=== PATIENT | male | born 1955 | race Caucasian/White ===

== ENCOUNTER 2020-10-08 09:19 | Inpatient (IN) | payer MEDICAID ==
[~2020-10-08] VITALS: Ht 172.7 cm; Wt 50.5 kg
[2020-10-08] MEDS ORDERED: DEXAMETHASONE 10 MG/ML VIAL IV ONE (10:00)
[2020-10-08 10:14] LABS: HEMATOCRIT. 32.2 % (42.0-52.0); HEMOGLOBIN. 10.6 g/dL (14.0-18.0); MEAN CORPUSCULAR HEMOGLOBIN 28.5 pg (28.0-32.0); MEAN CORPUSCULAR VOLUME 86.2 fL (80.0-94.0); MEAN PLATELET VOLUME 8.5 fl (7.4-10.4); PLATELET 148 x1000/uL (130-400); RED BLOOD CELL COUNT 3.73 mill/uL (4.7-6.1); RED CELL DISTRIBUTION WIDTH 14.7 % (11.6-14.6)
[2020-10-08 10:26] LABS: CHLORIDE 105 mEq/L (98-107)
[2020-10-08 10:35] LABS: D-DIMER 1.53 mg/L FEU (<0.50); INR 1.3; PROTHROMBIN TIME 13.8 sec (9.6-11.0)
[2020-10-08 10:52] LABS: PLATELET ESTIMATE NORMAL
[2020-10-08] MEDS ORDERED: CALCIUM GLUCONATE 100MG/ML 10ML VIAL IV ONE (12:15)
[2020-10-08] MEDS ORDERED: SODIUM POLYSTYRENE SULFONATE 15 G/60 ML BOT PO ONE (12:15)
[2020-10-08] MEDS ORDERED: SODIUM BICARBONATE 8.4% 1 MEQ/ML 50ML SYR IV ONE (12:30)
[2020-10-08] MEDS ORDERED: EPINEPHRINE 0.1MG/ML (1:10,000) 10ML SYR ONE (12:30)
[2020-10-08] MEDS ORDERED: SODIUM POLYSTYRENE SULFONATE 15 G/60 ML BOT PO SCH (12:45)
[2020-10-08] MEDS ORDERED: INSULIN REGULAR (HUMULIN R) 300UNITS/3ML VIAL IV SCH (12:51)
[2020-10-08] MEDS ORDERED: SODIUM BICARBONATE 8.4% 1 MEQ/ML 50ML SYR IV SCH (12:51)
[2020-10-08] MEDS ORDERED: DEXTROSE 50% WATER 50ML SYRINGE IV SCH (12:51)
[2020-10-08] MEDS ORDERED: FUROSEMIDE 40MG/4ML VIAL IVP SCH (13:15)
[2020-10-08] MEDS ORDERED: ALBUTEROL 6.7GM HFA INHALER ORI PRN (13:45)
[2020-10-08] MEDS ORDERED: CALCIUM GLUCONATE 2,000 MG in SODIUM CHLORIDE 0.9% 100 ML IV SCH (14:00)
[2020-10-08] MEDS: DEXAMETHASONE 10 MG/ML VIAL IV SCH (14:39)
[2020-10-08] MEDS: THIAMINE HCL 100MG TABLET PO SCH (14:39)
[2020-10-08] MEDS: ASCORBIC ACID 500 MG TABLET PO SCH (14:39)
[2020-10-08] MEDS: ZINC SULFATE 220 MG ( 50 ) CAPSULE PO SCH (14:42)
[2020-10-08 18:36] VITALS: BP_SYST 171
[2020-10-08 20:00] VITALS: BP 143/77
[2020-10-08] MEDS ORDERED: ONDANSETRON HCL 4MG/2ML INJ IV PRN (20:30)
[2020-10-08] MEDS: BLOOD SUGAR DIAGNOSTIC STRIP TEST SCH (21:00)
[2020-10-08] MEDS: INSULIN LISPRO 100 UNITS/ML SUBCUT SCH (21:00)
[2020-10-08] MEDS: SODIUM CHLORIDE 0.9% INJ 3ML FLUSH IVF SCH (22:55)
[2020-10-09] VITALS (47 sets, daily range): BP systolic 117–199; BP diastolic 70–102
[2020-10-09] MEDS: SODIUM CHLORIDE 0.9% INJ 3ML FLUSH IVF SCH ×3 (06:39→22:23)
[2020-10-09] MEDS: BLOOD SUGAR DIAGNOSTIC STRIP TEST SCH ×4 (06:43→22:42)
[2020-10-09] MEDS: INSULIN LISPRO 100 UNITS/ML SUBCUT SCH ×4 (06:52→22:57)
[2020-10-09] MEDS: FUROSEMIDE 40MG/4ML VIAL IVP SCH ×2 (06:55→17:30)
[2020-10-09] MEDS: PANTOPRAZOLE SODIUM 40 MG/VIAL IV SCH (09:00)
[2020-10-09] MEDS: ZINC SULFATE 220 MG ( 50 ) CAPSULE PO SCH (09:00)
[2020-10-09] MEDS: ASCORBIC ACID 500 MG TABLET PO SCH (09:00)
[2020-10-09] MEDS: THIAMINE HCL 100MG TABLET PO SCH (09:00)
[2020-10-09] MEDS: DEXAMETHASONE 10 MG/ML VIAL IV SCH (09:00)
[2020-10-09] MEDS ORDERED: MIDAZOLAM HCL 100 MG in DEXT 5% WATER 80 ML IV PRN (09:45)
[2020-10-09] MEDS ORDERED: EPINEPHRINE 0.1MG/ML (1:10,000) 10ML SYR ONE (10:00)
[2020-10-09] MEDS ORDERED: CALCIUM CHLORIDE 1GM/10ML SYR IV ONE (10:00)
[2020-10-09] MEDS ORDERED: DEXTROSE 50% WATER 50ML SYRINGE IV ONE (10:00)
[2020-10-09] MEDS ORDERED: NOREPINEPHRINE 32 MG in DEXT 5% WATER 218 ML IV PRN ×4 (10:15)
[2020-10-09] MEDS ORDERED: PROPOFOL 10MG/ML 100ML 100 ML IV SCH (10:15)
[2020-10-09] MEDS ORDERED: FENTANYL CITRATE/PF 2,500 MCG in SODIUM CHLORIDE 0.9% 200 ML IV PRN (10:15)
[2020-10-09 11:24] LABS: MEAN CORPUSCULAR HEMOGLOBIN 27.6 pg (28.0-32.0); MEAN PLATELET VOLUME 9.3 fl (7.4-10.4); PLATELET 139 x1000/uL (130-400); RED BLOOD CELL COUNT 4.59 mill/uL (4.7-6.1)
[2020-10-09 11:39] LABS: HEMATOCRIT. 39.9 % (42.0-52.0); HEMOGLOBIN. 12.6 g/dL (14.0-18.0)
[2020-10-09 11:42] LABS: BG BASE EXCESS -15.2 mmol/L (-2.0-2.0); BG CARBOXYHEMOGLOBIN 0.2 % (0.5-1.5); BG DEOXYHEMOGLOBIN 9.5 % (0.0-5.0); BG FRACTION INSPIRED OXYGEN 100; BG HCO3 ACT 15.9 mmol/L (22.0-26.0); BG METHEMOGLOBIN 0.3 % (0.0-1.5); BG OXYGEN SATURATION 90.5 % (92.0-98.5); BG PCO2 61.1 mmHg (35.0-45.0); BG PH 7.033 (7.350-7.450); BG PO2 80.9 mmHg (75.0-100.0); BG SAMPLE SITE RIGHT BRACHIAL; BG TOTAL HEMOGLOBIN 13.1 g/dL (12.0-18.0); BG TOTAL RESPIRATORY RATE 24 b/min; BG VENT MODE VENT - AC
[2020-10-09 12:36] LABS: CHLORIDE 105 mEq/L (98-107)
[2020-10-09] MEDS ORDERED: SODIUM BICARBONATE 8.4% 1 MEQ/ML 50ML SYR IV SCH (12:45)
[2020-10-09 13:23] LABS: PHOSPHORUS 8.4 mg/dL (2.5-4.9)
[2020-10-09] MEDS ORDERED: INSULIN LISPRO 100 UNITS/ML SUBCUT NR (13:30)
[2020-10-09 13:42] LABS: NUCLEATED RED BLOOD CELLS 1 /100 WBC
[2020-10-09 13:43] LABS: PLATELET ESTIMATE NORMAL
[2020-10-09] MEDS: ERGOCALCIFEROL 50000UNITS CAPSULE PO SCH (15:00)
[2020-10-09] MEDS: CALCIUM ACETATE 667MG CAPSULE PO SCH (15:02)
[2020-10-09] MEDS: METHYLPREDNISOLONE SOD SUCC 40 MG/ML VIAL IV SCH ×2 (15:02→22:22)
[2020-10-09] MEDS: SODIUM BICARBONATE 100 MEQ in SODIUM CHLORIDE 0.45% 1,000 ML IV SCH (15:02)
[2020-10-09] MEDS: METRONIDAZOLE 250MG TABLET PO SCH ×2 (15:03→22:22)
[2020-10-09] MEDS ORDERED: VANCOMYCIN 1,500 MG in DEXT 5% WATER 250 ML IV SCH (16:00)
[2020-10-09] MEDS ORDERED: AZTREONAM 500 MG in DEXTROSE 5% WATER 50 ML IV SCH (16:00)
[2020-10-09 16:35] LABS: BG BASE EXCESS -11.3 mmol/L (-2.0-2.0); BG CARBOXYHEMOGLOBIN 0.2 % (0.5-1.5); BG DEOXYHEMOGLOBIN 13.9 % (0.0-5.0); BG FRACTION INSPIRED OXYGEN 100; BG HCO3 ACT 17.3 mmol/L (22.0-26.0); BG METHEMOGLOBIN 0.2 % (0.0-1.5); BG OXYHEMOGLOBIN 85.7 % (94.0-97.0); BG PCO2 49.3 mmHg (35.0-45.0); BG PH 7.162 (7.350-7.450); BG SAMPLE SITE RIGHT BRACHIAL; BG TOTAL HEMOGLOBIN 13.1 g/dL (12.0-18.0); BG TOTAL RESPIRATORY RATE 30 b/min; BG VENT MODE VENT - AC
[2020-10-09] MEDS ORDERED: SODIUM BICARBONATE 8.4% 1 MEQ/ML 50ML SYR IV NR (16:45)
[2020-10-09] MEDS ORDERED: BLOOD SUGAR DIAGNOSTIC STRIP TEST SCH (18:00)
[2020-10-09] MEDS ORDERED: INSULIN LISPRO 100 UNITS/ML SUBCUT SCH (18:00)
[2020-10-09] MEDS: FENTANYL CITRATE/PF 2,500 MCG in SODIUM CHLORIDE 0.9% 200 ML IV PRN (18:14)
[2020-10-09] MEDS: PHENYLEPHRINE 100 MG in DEXT 5% WATER 240 ML IV PRN (18:17)
[2020-10-09] MEDS: NOREPINEPHRINE 32 MG in DEXT 5% WATER 218 ML IV PRN ×3 (18:18→22:34)
[2020-10-09] MEDS: AZTREONAM 500 MG in DEXTROSE 5% WATER 50 ML IV SCH (20:04)
[2020-10-09] MEDS: INSULIN GLARGINE UD 100 UNITS/ML SYR SUBCUT SCH (23:00)
[2020-10-10] VITALS (91 sets, daily range): BP systolic 85–201; BP diastolic 50–107
[2020-10-10] MEDS: INSULIN LISPRO 100 UNITS/ML SUBCUT SCH ×6 (02:00→22:14)
[2020-10-10] MEDS: BLOOD SUGAR DIAGNOSTIC STRIP TEST SCH ×6 (02:29→22:14)
[2020-10-10] MEDS: INSULIN LISPRO 100 UNITS/ML SUBCUT PRN ×2 (02:32→06:52)
[2020-10-10] MEDS: AZTREONAM 500 MG in DEXTROSE 5% WATER 50 ML IV SCH ×3 (05:44→20:47)
[2020-10-10 06:30] LABS: CREATINE KINASE 445 IU/L (39-308)
[2020-10-10 06:50] LABS: C REACTIVE PROTEIN QUANT > 190.0 mg/L (0.0-3.0)
[2020-10-10] MEDS: FUROSEMIDE 40MG/4ML VIAL IVP SCH ×2 (06:52→16:59)
[2020-10-10] MEDS: METHYLPREDNISOLONE SOD SUCC 40 MG/ML VIAL IV SCH ×3 (06:52→22:12)
[2020-10-10] MEDS: METRONIDAZOLE 250MG TABLET PO SCH ×3 (06:53→22:12)
[2020-10-10] MEDS: SODIUM CHLORIDE 0.9% INJ 3ML FLUSH IVF SCH ×3 (06:53→22:02)
[2020-10-10] MEDS: IPRATROPIUM BROMIDE (0.02%) 0.5MG/2.5ML NEB HHN SCH ×4 (08:20→20:27)
[2020-10-10] MEDS ORDERED: IPRATROPIUM/ALBUTEROL 0.5-3(2.5)MG/3ML NEB ONE (08:21)
[2020-10-10 09:40] LABS: BG BASE EXCESS -2.5 mmol/L (-2.0-2.0); BG CARBOXYHEMOGLOBIN 0.3 % (0.5-1.5); BG DEOXYHEMOGLOBIN 12.3 % (0.0-5.0); BG FRACTION INSPIRED OXYGEN 100; BG HCO3 ACT 23.6 mmol/L (22.0-26.0); BG METHEMOGLOBIN 0.3 % (0.0-1.5); BG OXYGEN SATURATION 87.6 % (92.0-98.5); BG OXYHEMOGLOBIN 87.1 % (94.0-97.0); BG PH 7.328 (7.350-7.450); BG PO2 54.4 mmHg (75.0-100.0); BG SAMPLE SITE LEFT BRACHIAL; BG TOTAL HEMOGLOBIN 12.8 g/dL (12.0-18.0); BG VENT MODE VENT - AC
[2020-10-10 09:42] LABS: HEMATOCRIT. 34.9 % (42.0-52.0); HEMOGLOBIN. 11.5 g/dL (14.0-18.0); MEAN CORPUSCULAR HEMOGLOBIN 27.6 pg (28.0-32.0); MEAN CORPUSCULAR VOLUME 84.1 fL (80.0-94.0); MEAN PLATELET VOLUME 9.5 fl (7.4-10.4); PLATELET 92 x1000/uL (130-400); RED BLOOD CELL COUNT 4.15 mill/uL (4.7-6.1); RED CELL DISTRIBUTION WIDTH 15.1 % (11.6-14.6)
[2020-10-10] MEDS: PANTOPRAZOLE SODIUM 40 MG/VIAL IV SCH (09:58)
[2020-10-10] MEDS: CALCIUM ACETATE 667MG CAPSULE PO SCH ×3 (09:59→17:00)
[2020-10-10] MEDS ORDERED: POTASSIUM CHLORIDE 20MEQ/PACKET PO NR (10:30)
[2020-10-10] MEDS: FENTANYL CITRATE/PF 2,500 MCG in SODIUM CHLORIDE 0.9% 200 ML IV PRN (10:42)
[2020-10-10] MEDS: SODIUM BICARBONATE 100 MEQ in SODIUM CHLORIDE 0.45% 1,000 ML IV SCH (10:42)
[2020-10-10] MEDS: INSULIN GLARGINE UD 100 UNITS/ML SYR SUBCUT SCH ×2 (10:44→22:14)
[2020-10-10] MEDS: DEXT 5%/0.45% NACL 1000ML 1,000 ML IV SCH (12:21)
[2020-10-10 13:04] LABS: PLATELET ESTIMATE DECREASED
[2020-10-10] MEDS ORDERED: MIDAZOLAM HCL 100 MG in DEXT 5% WATER 80 ML IV PRN (13:30)
[2020-10-10] MEDS ORDERED: VANCOMYCIN 1 G PREMIX 200 ML IV SCH (13:30)
[2020-10-10] MEDS: NOREPINEPHRINE 32 MG in DEXT 5% WATER 218 ML IV PRN (13:47)
[2020-10-10] MEDS: MIDAZOLAM 100MG/100ML PMX 100 ML IV PRN (13:58)
[2020-10-10] MEDS: THIAMINE HCL 100MG TABLET PO SCH (15:36)
[2020-10-10] MEDS: ZINC SULFATE 220 MG ( 50 ) CAPSULE PO SCH (15:37)
[2020-10-10] MEDS: ASCORBIC ACID 500 MG TABLET PO SCH (15:37)
[2020-10-10] MEDS: METOCLOPRAMIDE HCL 10MG/2ML VIAL IV SCH ×2 (17:00→23:21)
[2020-10-10] MEDS: DEXTROSE 50% WATER 50ML SYRINGE IV PRN (17:44)
[2020-10-11] VITALS (87 sets, daily range): BP systolic 86–178; BP diastolic 53–105
[2020-10-11] MEDS: IPRATROPIUM BROMIDE (0.02%) 0.5MG/2.5ML NEB HHN SCH ×6 (00:21→22:46)
[2020-10-11] MEDS: BLOOD SUGAR DIAGNOSTIC STRIP TEST SCH ×6 (01:37→21:31)
[2020-10-11] MEDS: INSULIN LISPRO 100 UNITS/ML SUBCUT SCH ×6 (01:42→21:34)
[2020-10-11] MEDS: AZTREONAM 500 MG in DEXTROSE 5% WATER 50 ML IV SCH ×3 (03:45→20:31)
[2020-10-11 05:36] LABS: HEMATOCRIT. 33.3 % (42.0-52.0); MEAN CORPUSCULAR HEMOGLOBIN 27.5 pg (28.0-32.0); MEAN CORPUSCULAR VOLUME 83.6 fL (80.0-94.0); PLATELET 59 x1000/uL (130-400); RED BLOOD CELL COUNT 3.98 mill/uL (4.7-6.1); RED CELL DISTRIBUTION WIDTH 15.1 % (11.6-14.6)
[2020-10-11] MEDS: SODIUM CHLORIDE 0.9% INJ 3ML FLUSH IVF SCH ×3 (06:16→21:34)
[2020-10-11] MEDS: METRONIDAZOLE 250MG TABLET PO SCH ×3 (06:16→21:23)
[2020-10-11] MEDS: FUROSEMIDE 40MG/4ML VIAL IVP SCH ×2 (08:16→16:58)
[2020-10-11] MEDS: PANTOPRAZOLE SODIUM 40 MG/VIAL IV SCH (08:16)
[2020-10-11] MEDS: MIDAZOLAM 100MG/100ML PMX 100 ML IV PRN (08:29)
[2020-10-11 09:07] LABS: PLATELET ESTIMATE DECREASED
[2020-10-11 09:15] LABS: BG BASE EXCESS 1.2 mmol/L (-2.0-2.0); BG CARBOXYHEMOGLOBIN 0.3 % (0.5-1.5); BG FRACTION INSPIRED OXYGEN 100; BG HCO3 ACT 24.6 mmol/L (22.0-26.0); BG METHEMOGLOBIN 0.2 % (0.0-1.5); BG OXYHEMOGLOBIN 98.5 % (94.0-97.0); BG PCO2 34.6 mmHg (35.0-45.0); BG PH 7.469 (7.350-7.450); BG PO2 185.8 mmHg (75.0-100.0); BG SAMPLE SITE RIGHT RADIAL; BG TOTAL HEMOGLOBIN 10.9 g/dL (12.0-18.0); BG VENT MODE VENT - AC
[2020-10-11] MEDS: INSULIN GLARGINE UD 100 UNITS/ML SYR SUBCUT SCH ×2 (10:00→21:24)
[2020-10-11] MEDS: ASCORBIC ACID 500 MG TABLET PO SCH (10:54)
[2020-10-11] MEDS: ZINC SULFATE 220 MG ( 50 ) CAPSULE PO SCH (10:54)
[2020-10-11] MEDS: THIAMINE HCL 100MG TABLET PO SCH (10:54)
[2020-10-11] MEDS: CALCIUM ACETATE 667MG CAPSULE PO SCH ×3 (10:55→20:31)
[2020-10-11] MEDS: METHYLPREDNISOLONE SOD SUCC 40 MG/ML VIAL IV SCH ×3 (10:55→21:23)
[2020-10-11] MEDS ORDERED: VANCOMYCIN 500 MG PREMIX 100 ML IV SCH (11:00)
[2020-10-11] MEDS: METOCLOPRAMIDE HCL 10MG/2ML VIAL IV SCH ×2 (14:36→16:59)
[2020-10-11] MEDS: DEXT 5%/0.45% NACL 1000ML 1,000 ML IV SCH (14:36)
[2020-10-11] MEDS: FENTANYL CITRATE/PF 2,500 MCG in SODIUM CHLORIDE 0.9% 200 ML IV PRN (16:05)
[2020-10-12] VITALS (93 sets, daily range): BP systolic 59–172; BP diastolic 40–102
[2020-10-12] MEDS: METOCLOPRAMIDE HCL 10MG/2ML VIAL IV SCH ×4 (00:36→17:54)
[2020-10-12] MEDS: BLOOD SUGAR DIAGNOSTIC STRIP TEST SCH ×5 (01:55→17:44)
[2020-10-12] MEDS: INSULIN LISPRO 100 UNITS/ML SUBCUT SCH ×5 (02:01→17:44)
[2020-10-12] MEDS: IPRATROPIUM BROMIDE (0.02%) 0.5MG/2.5ML NEB HHN SCH ×5 (03:16→21:50)
[2020-10-12] MEDS: AZTREONAM 500 MG in DEXTROSE 5% WATER 50 ML IV SCH ×3 (03:29→20:14)
[2020-10-12] MEDS: SODIUM CHLORIDE 0.9% INJ 3ML FLUSH IVF SCH ×3 (05:23→21:09)
[2020-10-12] MEDS: METRONIDAZOLE 250MG TABLET PO SCH ×3 (05:27→21:09)
[2020-10-12 06:45] LABS: HEMATOCRIT. 32.9 % (42.0-52.0); HEMOGLOBIN. 10.9 g/dL (14.0-18.0); MEAN CORPUSCULAR HEMOGLOBIN 27.9 pg (28.0-32.0); MEAN CORPUSCULAR VOLUME 84.3 fL (80.0-94.0); MEAN PLATELET VOLUME 10.8 fl (7.4-10.4); RED BLOOD CELL COUNT 3.91 mill/uL (4.7-6.1); RED CELL DISTRIBUTION WIDTH 15.2 % (11.6-14.6)
[2020-10-12] MEDS: MIDAZOLAM 100MG/100ML PMX 100 ML IV PRN (07:30)
[2020-10-12] MEDS: PANTOPRAZOLE SODIUM 40 MG/VIAL IV SCH (09:04)
[2020-10-12] MEDS: FUROSEMIDE 40MG/4ML VIAL IVP SCH ×2 (09:05→17:52)
[2020-10-12] MEDS: METHYLPREDNISOLONE SOD SUCC 40 MG/ML VIAL IV SCH ×3 (09:05→21:09)
[2020-10-12] MEDS: THIAMINE HCL 100MG TABLET PO SCH (09:06)
[2020-10-12] MEDS: CALCIUM ACETATE 667MG CAPSULE PO SCH ×3 (09:06→17:52)
[2020-10-12] MEDS: ZINC SULFATE 220 MG ( 50 ) CAPSULE PO SCH (09:06)
[2020-10-12] MEDS: ASCORBIC ACID 500 MG TABLET PO SCH (09:06)
[2020-10-12] MEDS: INSULIN GLARGINE UD 100 UNITS/ML SYR SUBCUT SCH (10:00)
[2020-10-12 10:47] LABS: BG BASE EXCESS -0.4 mmol/L (-2.0-2.0); BG CARBOXYHEMOGLOBIN 0.3 % (0.5-1.5); BG DEOXYHEMOGLOBIN 2.3 % (0.0-5.0); BG FRACTION INSPIRED OXYGEN 40; BG HCO3 ACT 22.4 mmol/L (22.0-26.0); BG METHEMOGLOBIN 0.3 % (0.0-1.5); BG OXYGEN SATURATION 97.7 % (92.0-98.5); BG OXYHEMOGLOBIN 97.1 % (94.0-97.0); BG PCO2 30.2 mmHg (35.0-45.0); BG PH 7.488 (7.350-7.450); BG PO2 104.4 mmHg (75.0-100.0); BG SAMPLE SITE RIGHT BRACHIAL; BG VENT MODE VENT - AC
[2020-10-12] MEDS: DEXT 5%/0.45% NACL 1000ML 1,000 ML IV SCH (14:31)
[2020-10-12] MEDS: NOREPINEPHRINE 32 MG in DEXT 5% WATER 218 ML IV PRN (17:57)
[2020-10-12 18:28] LABS: PLATELET ESTIMATE MARKEDLY DECREASED
[2020-10-12 18:29] LABS: PLATELET 27 x1000/uL (130-400)
[2020-10-12] MEDS: FENTANYL CITRATE/PF 2,500 MCG in SODIUM CHLORIDE 0.9% 200 ML IV PRN (18:40)
[2020-10-12] MEDS ORDERED: INSULIN GLARGINE UD 100 UNITS/ML SYR SUBCUT SCH (22:00)
[2020-10-13] VITALS (100 sets, daily range): BP systolic 59–170; BP diastolic 39–86
[2020-10-13] MEDS: METOCLOPRAMIDE HCL 10MG/2ML VIAL IV SCH ×4 (00:19→17:43)
[2020-10-13] MEDS: INSULIN LISPRO 100 UNITS/ML SUBCUT PRN (00:20)
[2020-10-13] MEDS: IPRATROPIUM BROMIDE (0.02%) 0.5MG/2.5ML NEB HHN SCH ×5 (03:35→21:45)
[2020-10-13] MEDS: AZTREONAM 500 MG in DEXTROSE 5% WATER 50 ML IV SCH ×3 (05:17→21:17)
[2020-10-13] MEDS: BLOOD SUGAR DIAGNOSTIC STRIP TEST SCH ×4 (05:26→17:49)
[2020-10-13] MEDS: SODIUM CHLORIDE 0.9% INJ 3ML FLUSH IVF SCH ×2 (05:26→13:43)
[2020-10-13 05:28] LABS: HEMATOCRIT. 31.9 % (42.0-52.0); HEMOGLOBIN. 10.4 g/dL (14.0-18.0); MEAN CORPUSCULAR HEMOGLOBIN 27.6 pg (28.0-32.0); MEAN CORPUSCULAR VOLUME 84.8 fL (80.0-94.0); MEAN PLATELET VOLUME 10.4 fl (7.4-10.4); RED BLOOD CELL COUNT 3.77 mill/uL (4.7-6.1); RED CELL DISTRIBUTION WIDTH 15.2 % (11.6-14.6)
[2020-10-13] MEDS: METRONIDAZOLE 250MG TABLET PO SCH ×3 (05:31→21:17)
[2020-10-13] MEDS: METHYLPREDNISOLONE SOD SUCC 40 MG/ML VIAL IV SCH ×3 (05:31→21:17)
[2020-10-13] MEDS: INSULIN LISPRO 100 UNITS/ML SUBCUT SCH ×4 (05:33→17:49)
[2020-10-13] MEDS: MIDAZOLAM 100MG/100ML PMX 100 ML IV PRN (06:11)
[2020-10-13 06:23] LABS: PLATELET 19 x1000/uL (130-400)
[2020-10-13] MEDS: CALCIUM ACETATE 667MG CAPSULE PO SCH ×3 (08:44→17:43)
[2020-10-13] MEDS: ZINC SULFATE 220 MG ( 50 ) CAPSULE PO SCH (08:44)
[2020-10-13] MEDS: ASCORBIC ACID 500 MG TABLET PO SCH (08:44)
[2020-10-13] MEDS: THIAMINE HCL 100MG TABLET PO SCH (08:44)
[2020-10-13] MEDS: PANTOPRAZOLE SODIUM 40 MG/VIAL IV SCH (08:44)
[2020-10-13] MEDS: FUROSEMIDE 40MG/4ML VIAL IVP SCH (08:44)
[2020-10-13 10:06] LABS: BG BASE EXCESS -0.5 mmol/L (-2.0-2.0); BG CARBOXYHEMOGLOBIN 0.3 % (0.5-1.5); BG DEOXYHEMOGLOBIN 3.9 % (0.0-5.0); BG FRACTION INSPIRED OXYGEN 40; BG HCO3 ACT 23.2 mmol/L (22.0-26.0); BG METHEMOGLOBIN 0.1 % (0.0-1.5); BG OXYGEN SATURATION 96.1 % (92.0-98.5); BG OXYHEMOGLOBIN 95.7 % (94.0-97.0); BG PO2 84.8 mmHg (75.0-100.0); BG SAMPLE SITE RIGHT BRACHIAL; BG TOTAL HEMOGLOBIN 11.1 g/dL (12.0-18.0); BG TOTAL RESPIRATORY RATE 30 b/min; BG VENT MODE VENT - AC
[2020-10-13 11:18] LABS: PLATELET ESTIMATE MARKEDLY DECREASED
[2020-10-13] MEDS: INSULIN GLARGINE UD 100 UNITS/ML SYR SUBCUT SCH ×2 (11:25→21:37)
[2020-10-13 16:17] LABS: BG BASE EXCESS -1.7 mmol/L (-2.0-2.0); BG CARBOXYHEMOGLOBIN 0.4 % (0.5-1.5); BG DEOXYHEMOGLOBIN 6.3 % (0.0-5.0); BG FRACTION INSPIRED OXYGEN 40; BG HCO3 ACT 22.9 mmol/L (22.0-26.0); BG METHEMOGLOBIN 0.3 % (0.0-1.5); BG OXYGEN SATURATION 93.7 % (92.0-98.5); BG PH 7.397 (7.350-7.450); BG PO2 69.3 mmHg (75.0-100.0); BG SAMPLE SITE LEFT RADIAL; BG TOTAL HEMOGLOBIN 11.2 g/dL (12.0-18.0); BG VENT MODE VENT - AC
[2020-10-13] MEDS: FENTANYL CITRATE/PF 2,500 MCG in SODIUM CHLORIDE 0.9% 200 ML IV PRN (22:00)
[2020-10-14] VITALS (93 sets, daily range): BP systolic 93–143; BP diastolic 54–81
[2020-10-14] MEDS: METOCLOPRAMIDE HCL 10MG/2ML VIAL IV SCH ×5 (00:06→23:58)
[2020-10-14] MEDS: BLOOD SUGAR DIAGNOSTIC STRIP TEST SCH ×5 (00:06→23:54)
[2020-10-14] MEDS: INSULIN LISPRO 100 UNITS/ML SUBCUT SCH ×5 (00:12→23:59)
[2020-10-14] MEDS: AZTREONAM 500 MG in DEXTROSE 5% WATER 50 ML IV SCH ×2 (03:54→11:15)
[2020-10-14] MEDS: SODIUM CHLORIDE 0.9% INJ 3ML FLUSH IVF SCH ×4 (03:54→21:23)
[2020-10-14] MEDS: IPRATROPIUM BROMIDE (0.02%) 0.5MG/2.5ML NEB HHN SCH ×4 (05:05→20:55)
[2020-10-14] MEDS: METHYLPREDNISOLONE SOD SUCC 40 MG/ML VIAL IV SCH ×3 (05:59→21:15)
[2020-10-14] MEDS: METRONIDAZOLE 250MG TABLET PO SCH ×3 (05:59→21:15)
[2020-10-14 07:18] LABS: PHOSPHORUS 4.9 mg/dL (2.5-4.9)
[2020-10-14 07:30] LABS: HEMATOCRIT. 32.4 % (42.0-52.0); HEMOGLOBIN. 10.7 g/dL (14.0-18.0); MEAN CORPUSCULAR HEMOGLOBIN 27.7 pg (28.0-32.0); MEAN CORPUSCULAR VOLUME 83.4 fL (80.0-94.0); MEAN PLATELET VOLUME 11.2 fl (7.4-10.4); RED BLOOD CELL COUNT 3.88 mill/uL (4.7-6.1); RED CELL DISTRIBUTION WIDTH 15.1 % (11.6-14.6)
[2020-10-14 07:44] LABS: PLATELET 22 x1000/uL (130-400)
[2020-10-14] MEDS: PANTOPRAZOLE SODIUM 40 MG/VIAL IV SCH (09:11)
[2020-10-14] MEDS: ASCORBIC ACID 500 MG TABLET PO SCH (09:12)
[2020-10-14] MEDS: ZINC SULFATE 220 MG ( 50 ) CAPSULE PO SCH (09:12)
[2020-10-14] MEDS: THIAMINE HCL 100MG TABLET PO SCH (09:12)
[2020-10-14] MEDS: CALCIUM ACETATE 667MG CAPSULE PO SCH ×3 (09:12→16:46)
[2020-10-14 09:21] LABS: BG BASE EXCESS -2.6 mmol/L (-2.0-2.0); BG CARBOXYHEMOGLOBIN 0.5 % (0.5-1.5); BG DEOXYHEMOGLOBIN 3.5 % (0.0-5.0); BG FRACTION INSPIRED OXYGEN 40; BG METHEMOGLOBIN 0.3 % (0.0-1.5); BG OXYGEN SATURATION 96.5 % (92.0-98.5); BG OXYHEMOGLOBIN 95.7 % (94.0-97.0); BG PCO2 37.1 mmHg (35.0-45.0); BG PO2 88.3 mmHg (75.0-100.0); BG SAMPLE SITE RIGHT RADIAL; BG TOTAL HEMOGLOBIN 11.4 g/dL (12.0-18.0); BG VENT MODE VENT - AC
[2020-10-14] MEDS: NOREPINEPHRINE 32 MG in DEXT 5% WATER 218 ML IV PRN (09:29)
[2020-10-14] MEDS ORDERED: MIDAZOLAM 100MG/100ML PMX 100 ML IV PRN (10:00)
[2020-10-14] MEDS: INSULIN GLARGINE UD 100 UNITS/ML SYR SUBCUT SCH ×2 (10:56→21:15)
[2020-10-14] MEDS ORDERED: VANCOMYCIN 500 MG PREMIX 100 ML IV SCH (12:00)
[2020-10-14 18:13] LABS: PLATELET ESTIMATE MARKEDLY DECREASED
[2020-10-14] MEDS: FENTANYL CITRATE/PF 2,500 MCG in SODIUM CHLORIDE 0.9% 200 ML IV PRN (22:21)
[2020-10-15] VITALS (99 sets, daily range): BP systolic 71–182; BP diastolic 40–94
[2020-10-15] MEDS: IPRATROPIUM BROMIDE (0.02%) 0.5MG/2.5ML NEB HHN SCH ×5 (02:41→20:33)
[2020-10-15] MEDS: INSULIN LISPRO 100 UNITS/ML SUBCUT SCH ×5 (05:47→22:25)
[2020-10-15] MEDS: METRONIDAZOLE 250MG TABLET PO SCH ×3 (05:49→22:24)
[2020-10-15] MEDS: METOCLOPRAMIDE HCL 10MG/2ML VIAL IV SCH ×3 (05:49→18:00)
[2020-10-15] MEDS: SODIUM CHLORIDE 0.9% INJ 3ML FLUSH IVF SCH ×3 (06:04→22:00)
[2020-10-15] MEDS: BLOOD SUGAR DIAGNOSTIC STRIP TEST SCH ×5 (06:04→20:00)
[2020-10-15 08:01] LABS: HEMATOCRIT. 31.8 % (42.0-52.0); HEMOGLOBIN. 10.4 g/dL (14.0-18.0); MEAN CORPUSCULAR HEMOGLOBIN 27.8 pg (28.0-32.0); MEAN CORPUSCULAR VOLUME 84.8 fL (80.0-94.0); MEAN PLATELET VOLUME 11.1 fl (7.4-10.4); RED BLOOD CELL COUNT 3.75 mill/uL (4.7-6.1)
[2020-10-15 08:32] LABS: PLATELET 35 x1000/uL (130-400)
[2020-10-15 09:15] LABS: BG CARBOXYHEMOGLOBIN 0.8 % (0.5-1.5); BG DEOXYHEMOGLOBIN 21.3 % (0.0-5.0); BG FRACTION INSPIRED OXYGEN 40; BG METHEMOGLOBIN 0.3 % (0.0-1.5); BG OXYGEN SATURATION 78.5 % (92.0-98.5); BG OXYHEMOGLOBIN 77.6 % (94.0-97.0); BG PCO2 55.2 mmHg (35.0-45.0); BG PH 7.307 (7.350-7.450); BG PO2 46.1 mmHg (75.0-100.0); BG SAMPLE SITE LEFT BRACHIAL; BG TOTAL HEMOGLOBIN 11.2 g/dL (12.0-18.0); BG VENT MODE VENT - AC
[2020-10-15] MEDS: CALCIUM ACETATE 667MG CAPSULE PO SCH ×3 (09:53→18:00)
[2020-10-15] MEDS: ASCORBIC ACID 500 MG TABLET PO SCH (09:53)
[2020-10-15] MEDS: ZINC SULFATE 220 MG ( 50 ) CAPSULE PO SCH (09:53)
[2020-10-15] MEDS: THIAMINE HCL 100MG TABLET PO SCH (09:54)
[2020-10-15] MEDS: PANTOPRAZOLE SODIUM 40 MG/VIAL IV SCH (09:54)
[2020-10-15] MEDS: METHYLPREDNISOLONE SOD SUCC 125 MG/2 ML VIAL IV SCH ×3 (09:54→22:24)
[2020-10-15] MEDS: INSULIN GLARGINE UD 100 UNITS/ML SYR SUBCUT SCH ×2 (09:56→22:25)
[2020-10-15] MEDS ORDERED: BLOOD SUGAR DIAGNOSTIC STRIP TEST SCH (10:00)
[2020-10-15 11:53] LABS: NUCLEATED RED BLOOD CELLS 2 /100 WBC; PLATELET ESTIMATE MARKEDLY DECREASED
[2020-10-15] MEDS: LACTULOSE 20G/30ML UDC PO PRN (16:07)
[2020-10-15] MEDS: AZTREONAM 500 MG in DEXTROSE 5% WATER 50 ML IV SCH (17:59)
[2020-10-16] VITALS (87 sets, daily range): BP systolic 81–163; BP diastolic 51–105
[2020-10-16] MEDS: IPRATROPIUM BROMIDE (0.02%) 0.5MG/2.5ML NEB HHN SCH ×7 (00:44→19:41)
[2020-10-16] MEDS: AZTREONAM 500 MG in DEXTROSE 5% WATER 50 ML IV SCH ×3 (01:25→17:31)
[2020-10-16] MEDS: INSULIN LISPRO 100 UNITS/ML SUBCUT SCH ×4 (01:26→20:00)
[2020-10-16] MEDS: BLOOD SUGAR DIAGNOSTIC STRIP TEST SCH ×6 (04:00→20:00)
[2020-10-16] MEDS: INSULIN LISPRO 100 UNITS/ML SUBCUT PRN (04:43)
[2020-10-16] MEDS: SODIUM CHLORIDE 0.9% INJ 3ML FLUSH IVF SCH ×3 (06:00→21:16)
[2020-10-16] MEDS: METOCLOPRAMIDE HCL 10MG/2ML VIAL IV SCH ×4 (06:37→17:31)
[2020-10-16] MEDS: METHYLPREDNISOLONE SOD SUCC 125 MG/2 ML VIAL IV SCH ×3 (06:37→21:15)
[2020-10-16] MEDS: METRONIDAZOLE 250MG TABLET PO SCH ×2 (06:37→14:01)
[2020-10-16 07:31] LABS: HEMATOCRIT. 36.3 % (42.0-52.0); HEMOGLOBIN. 11.8 g/dL (14.0-18.0); MEAN CORPUSCULAR HEMOGLOBIN 27.5 pg (28.0-32.0); MEAN CORPUSCULAR VOLUME 84.4 fL (80.0-94.0); MEAN PLATELET VOLUME 9.6 fl (7.4-10.4); RED CELL DISTRIBUTION WIDTH 15.1 % (11.6-14.6)
[2020-10-16 08:06] LABS: PLATELET 76 x1000/uL (130-400)
[2020-10-16 09:31] LABS: BG BASE EXCESS -3.4 mmol/L (-2.0-2.0); BG CARBOXYHEMOGLOBIN 0.3 % (0.5-1.5); BG DEOXYHEMOGLOBIN 1.4 % (0.0-5.0); BG FRACTION INSPIRED OXYGEN 40; BG HCO3 ACT 21.4 mmol/L (22.0-26.0); BG METHEMOGLOBIN 0.3 % (0.0-1.5); BG OXYGEN SATURATION 98.6 % (92.0-98.5); BG PCO2 37.4 mmHg (35.0-45.0); BG PH 7.375 (7.350-7.450); BG PO2 141.9 mmHg (75.0-100.0); BG SAMPLE SITE RIGHT RADIAL; BG TOTAL HEMOGLOBIN 11.8 g/dL (12.0-18.0); BG VENT MODE VENT - AC
[2020-10-16] MEDS: ERGOCALCIFEROL 50000UNITS CAPSULE PO SCH (10:09)
[2020-10-16] MEDS: THIAMINE HCL 100MG TABLET PO SCH (10:09)
[2020-10-16] MEDS: PANTOPRAZOLE SODIUM 40 MG/VIAL IV SCH (10:10)
[2020-10-16] MEDS: CALCIUM ACETATE 667MG CAPSULE PO SCH ×3 (10:10→17:31)
[2020-10-16] MEDS: ZINC SULFATE 220 MG ( 50 ) CAPSULE PO SCH (10:10)
[2020-10-16] MEDS: ASCORBIC ACID 500 MG TABLET PO SCH (10:12)
[2020-10-16] MEDS: INSULIN GLARGINE UD 100 UNITS/ML SYR SUBCUT SCH (10:14)
[2020-10-16] MEDS: ACETAMINOPHEN 650MG/20.3ML UDC PO PRN (12:34)
[2020-10-16 17:41] LABS: PLATELET ESTIMATE DECREASED
[2020-10-16] MEDS: FENTANYL CITRATE/PF 2,500 MCG in SODIUM CHLORIDE 0.9% 200 ML IV PRN (20:41)
[2020-10-16] MEDS ORDERED: INSULIN GLARGINE UD 100 UNITS/ML SYR SUBCUT SCH (22:00)
[2020-10-16] MEDS: NOREPINEPHRINE 32 MG in DEXT 5% WATER 218 ML IV PRN (23:56)
[2020-10-17] VITALS (66 sets, daily range): BP systolic 93–161; BP diastolic 54–92
[2020-10-17] MEDS: IPRATROPIUM BROMIDE (0.02%) 0.5MG/2.5ML NEB HHN SCH ×4 (01:29→21:04)
[2020-10-17] MEDS: METOCLOPRAMIDE HCL 10MG/2ML VIAL IV SCH ×4 (02:00→19:02)
[2020-10-17] MEDS: AZTREONAM 500 MG in DEXTROSE 5% WATER 50 ML IV SCH ×3 (02:56→22:31)
[2020-10-17] MEDS: BLOOD SUGAR DIAGNOSTIC STRIP TEST SCH ×6 (04:00→20:00)
[2020-10-17] MEDS: INSULIN LISPRO 100 UNITS/ML SUBCUT SCH ×6 (04:32→20:00)
[2020-10-17] MEDS: METHYLPREDNISOLONE SOD SUCC 125 MG/2 ML VIAL IV SCH (05:13)
[2020-10-17] MEDS: SODIUM CHLORIDE 0.9% INJ 3ML FLUSH IVF SCH ×2 (06:39→14:00)
[2020-10-17 06:42] LABS: HEMATOCRIT. 34.5 % (42.0-52.0); HEMOGLOBIN. 11.2 g/dL (14.0-18.0); MEAN CORPUSCULAR HEMOGLOBIN 27.6 pg (28.0-32.0); MEAN CORPUSCULAR VOLUME 85.2 fL (80.0-94.0); MEAN PLATELET VOLUME 9.6 fl (7.4-10.4); PLATELET 129 x1000/uL (130-400); RED BLOOD CELL COUNT 4.05 mill/uL (4.7-6.1); RED CELL DISTRIBUTION WIDTH 14.8 % (11.6-14.6)
[2020-10-17 07:40] LABS: PLATELET ESTIMATE SLIGHTLY DECREASED
[2020-10-17 09:29] LABS: BG BASE EXCESS -4.5 mmol/L (-2.0-2.0); BG CARBOXYHEMOGLOBIN 0.8 % (0.5-1.5); BG FRACTION INSPIRED OXYGEN 35; BG HCO3 ACT 20.2 mmol/L (22.0-26.0); BG METHEMOGLOBIN 0.3 % (0.0-1.5); BG OXYGEN SATURATION 93.9 % (92.0-98.5); BG OXYHEMOGLOBIN 92.9 % (94.0-97.0); BG PCO2 35.9 mmHg (35.0-45.0); BG PH 7.368 (7.350-7.450); BG PO2 72.2 mmHg (75.0-100.0); BG SAMPLE SITE RIGHT RADIAL; BG TOTAL HEMOGLOBIN 11.7 g/dL (12.0-18.0); BG VENT MODE VENT - AC
[2020-10-17] MEDS: PANTOPRAZOLE SODIUM 40 MG/VIAL IV SCH (09:34)
[2020-10-17] MEDS: ZINC SULFATE 220 MG ( 50 ) CAPSULE PO SCH (09:34)
[2020-10-17] MEDS: ASCORBIC ACID 500 MG TABLET PO SCH (09:34)
[2020-10-17] MEDS: THIAMINE HCL 100MG TABLET PO SCH (09:34)
[2020-10-17] MEDS: CALCIUM ACETATE 667MG CAPSULE PO SCH ×3 (09:34→19:02)
[2020-10-17] MEDS ORDERED: VANCOMYCIN 500 MG PREMIX 100 ML IV SCH (13:00)
[2020-10-17] MEDS: METHYLPREDNISOLONE SOD SUCC 40 MG/ML VIAL IV SCH (22:32)
[2020-10-17] MEDS: INSULIN GLARGINE UD 100 UNITS/ML SYR SUBCUT SCH (22:40)
[2020-10-18] VITALS (96 sets, daily range): BP systolic 67–148; BP diastolic 45–92
[2020-10-18] MEDS: IPRATROPIUM BROMIDE (0.02%) 0.5MG/2.5ML NEB HHN SCH ×3 (02:44→21:50)
[2020-10-18] MEDS: INSULIN LISPRO 100 UNITS/ML SUBCUT SCH ×6 (04:00→20:00)
[2020-10-18] MEDS: BLOOD SUGAR DIAGNOSTIC STRIP TEST SCH ×6 (04:00→20:28)
[2020-10-18] MEDS: AZTREONAM 500 MG in DEXTROSE 5% WATER 50 ML IV SCH ×3 (05:53→18:00)
[2020-10-18] MEDS: METOCLOPRAMIDE HCL 10MG/2ML VIAL IV SCH ×4 (05:54→18:00)
[2020-10-18 09:04] LABS: HEMOGLOBIN. 10.2 g/dL (14.0-18.0); MEAN CORPUSCULAR HEMOGLOBIN 27.6 pg (28.0-32.0); MEAN CORPUSCULAR VOLUME 83.4 fL (80.0-94.0); PLATELET 185 x1000/uL (130-400); RED BLOOD CELL COUNT 3.71 mill/uL (4.7-6.1); RED CELL DISTRIBUTION WIDTH 14.5 % (11.6-14.6)
[2020-10-18 09:19] LABS: INR 1.3; PROTHROMBIN TIME 13.5 sec (9.6-11.0)
[2020-10-18 09:30] LABS: BG BASE EXCESS 1.8 mmol/L (-2.0-2.0); BG CARBOXYHEMOGLOBIN 0.3 % (0.5-1.5); BG DEOXYHEMOGLOBIN 2.9 % (0.0-5.0); BG FRACTION INSPIRED OXYGEN 35; BG HCO3 ACT 24.7 mmol/L (22.0-26.0); BG METHEMOGLOBIN 0.3 % (0.0-1.5); BG OXYGEN SATURATION 97.1 % (92.0-98.5); BG OXYHEMOGLOBIN 96.5 % (94.0-97.0); BG PCO2 32.5 mmHg (35.0-45.0); BG PH 7.498 (7.350-7.450); BG PO2 104.7 mmHg (75.0-100.0); BG SAMPLE SITE RIGHT RADIAL; BG TOTAL HEMOGLOBIN 11.1 g/dL (12.0-18.0); BG VENT MODE VENT - CPAP
[2020-10-18 11:12] LABS: PLATELET ESTIMATE NORMAL
[2020-10-18] MEDS: CALCIUM ACETATE 667MG CAPSULE PO SCH ×3 (11:55→17:00)
[2020-10-18] MEDS: ASCORBIC ACID 500 MG TABLET PO SCH (11:55)
[2020-10-18] MEDS: THIAMINE HCL 100MG TABLET PO SCH (11:55)
[2020-10-18] MEDS: ZINC SULFATE 220 MG ( 50 ) CAPSULE PO SCH (11:55)
[2020-10-18] MEDS: METHYLPREDNISOLONE SOD SUCC 40 MG/ML VIAL IV SCH ×2 (11:56→21:10)
[2020-10-18] MEDS: PANTOPRAZOLE SODIUM 40 MG/VIAL IV SCH (11:56)
[2020-10-18] MEDS: INSULIN GLARGINE UD 100 UNITS/ML SYR SUBCUT SCH ×2 (11:57→21:11)
[2020-10-18] MEDS: SODIUM CHLORIDE 0.9% INJ 3ML FLUSH IVF SCH ×2 (13:39→22:23)
[2020-10-18 13:42] LABS: BG BASE EXCESS -0.1 mmol/L (-2.0-2.0); BG CARBOXYHEMOGLOBIN 0.3 % (0.5-1.5); BG DEOXYHEMOGLOBIN 19.5 % (0.0-5.0); BG FRACTION INSPIRED OXYGEN 80; BG HCO3 ACT 24.4 mmol/L (22.0-26.0); BG METHEMOGLOBIN 0.1 % (0.0-1.5); BG OXYGEN SATURATION 80.4 % (92.0-98.5); BG OXYHEMOGLOBIN 80.1 % (94.0-97.0); BG PCO2 39.3 mmHg (35.0-45.0); BG PH 7.411 (7.350-7.450); BG PO2 45.6 mmHg (75.0-100.0); BG SAMPLE SITE RIGHT BRACHIAL; BG TOTAL HEMOGLOBIN 10.9 g/dL (12.0-18.0); BG VENT MODE VENT - SIMV
[2020-10-18] MEDS: DEXTROSE 50% WATER 50ML SYRINGE IV PRN (18:53)
[2020-10-19] VITALS (73 sets, daily range): BP systolic 68–154; BP diastolic 44–90
[2020-10-19] MEDS: BLOOD SUGAR DIAGNOSTIC STRIP TEST SCH ×6 (00:05→20:00)
[2020-10-19] MEDS: METOCLOPRAMIDE HCL 10MG/2ML VIAL IV SCH ×5 (00:05→23:13)
[2020-10-19] MEDS: IPRATROPIUM BROMIDE (0.02%) 0.5MG/2.5ML NEB HHN SCH ×5 (01:57→21:01)
[2020-10-19] MEDS: INSULIN LISPRO 100 UNITS/ML SUBCUT SCH ×6 (04:00→20:00)
[2020-10-19] MEDS: SODIUM CHLORIDE 0.9% INJ 3ML FLUSH IVF SCH ×3 (05:15→21:10)
[2020-10-19] MEDS: FENTANYL CITRATE/PF 2,500 MCG in SODIUM CHLORIDE 0.9% 200 ML IV PRN (05:35)
[2020-10-19 06:01] LABS: HEMATOCRIT. 34.8 % (42.0-52.0); HEMOGLOBIN. 11.2 g/dL (14.0-18.0); MEAN CORPUSCULAR HEMOGLOBIN 27.4 pg (28.0-32.0); MEAN CORPUSCULAR VOLUME 84.9 fL (80.0-94.0); MEAN PLATELET VOLUME 8.5 fl (7.4-10.4); PLATELET 171 x1000/uL (130-400); RED CELL DISTRIBUTION WIDTH 14.9 % (11.6-14.6)
[2020-10-19] MEDS: ASCORBIC ACID 500 MG TABLET PO SCH (08:49)
[2020-10-19] MEDS: ZINC SULFATE 220 MG ( 50 ) CAPSULE PO SCH (08:49)
[2020-10-19] MEDS: CALCIUM ACETATE 667MG CAPSULE PO SCH ×3 (08:49→17:00)
[2020-10-19] MEDS: METHYLPREDNISOLONE SOD SUCC 40 MG/ML VIAL IV SCH ×2 (08:49→21:10)
[2020-10-19] MEDS: PANTOPRAZOLE SODIUM 40 MG/VIAL IV SCH (08:49)
[2020-10-19] MEDS: THIAMINE HCL 100MG TABLET PO SCH (08:49)
[2020-10-19] MEDS: NOREPINEPHRINE 8 MG in DEXT 5% WATER 242 ML IV PRN (08:50)
[2020-10-19 10:18] LABS: BG BASE EXCESS -1.9 mmol/L (-2.0-2.0); BG CARBOXYHEMOGLOBIN 0.3 % (0.5-1.5); BG DEOXYHEMOGLOBIN 2.7 % (0.0-5.0); BG METHEMOGLOBIN 0.3 % (0.0-1.5); BG OXYGEN SATURATION 97.3 % (92.0-98.5); BG OXYHEMOGLOBIN 96.7 % (94.0-97.0); BG PCO2 46.1 mmHg (35.0-45.0); BG PH 7.335 (7.350-7.450); BG PO2 106.1 mmHg (75.0-100.0); BG SAMPLE SITE RIGHT RADIAL; BG TOTAL HEMOGLOBIN 10.5 g/dL (12.0-18.0); BG VENT MODE VENT - AC
[2020-10-19] MEDS ORDERED: VANCOMYCIN 500 MG PREMIX 100 ML IV SCH ×2 (14:00→21:45)
[2020-10-19 14:34] LABS: PLATELET ESTIMATE NORMAL
[2020-10-19] MEDS: INSULIN GLARGINE UD 100 UNITS/ML SYR SUBCUT SCH ×2 (14:48→21:12)
[2020-10-19] MEDS ORDERED: LEVOFLOXACIN 500MG PREMIX 100 ML IV NR (22:30)
[2020-10-19] MEDS: METRONIDAZOLE 250MG TABLET PO SCH (23:13)
[2020-10-19] MEDS: AZTREONAM 500 MG in DEXTROSE 5% WATER 50 ML IV SCH (23:13)
[2020-10-20] VITALS (77 sets, daily range): BP systolic 52–124; BP diastolic 31–76
[2020-10-20] MEDS: BLOOD SUGAR DIAGNOSTIC STRIP TEST SCH ×6 (00:24→20:00)
[2020-10-20] MEDS: INSULIN LISPRO 100 UNITS/ML SUBCUT SCH ×6 (00:34→20:00)
[2020-10-20] MEDS: IPRATROPIUM BROMIDE (0.02%) 0.5MG/2.5ML NEB HHN SCH ×4 (02:38→20:33)
[2020-10-20] MEDS: SODIUM CHLORIDE 0.9% INJ 3ML FLUSH IVF SCH (04:54)
[2020-10-20] MEDS: METOCLOPRAMIDE HCL 10MG/2ML VIAL IV SCH ×3 (05:03→17:28)
[2020-10-20] MEDS: METRONIDAZOLE 250MG TABLET PO SCH ×3 (05:03→21:02)
[2020-10-20] MEDS: INSULIN LISPRO 100 UNITS/ML SUBCUT PRN (05:10)
[2020-10-20] MEDS: AZTREONAM 500 MG in DEXTROSE 5% WATER 50 ML IV SCH ×3 (06:21→21:03)
[2020-10-20 06:23] LABS: HEMATOCRIT. 33.6 % (42.0-52.0); HEMOGLOBIN. 10.8 g/dL (14.0-18.0); MEAN CORPUSCULAR HEMOGLOBIN 27.3 pg (28.0-32.0); MEAN CORPUSCULAR VOLUME 85.2 fL (80.0-94.0); MEAN PLATELET VOLUME 9.4 fl (7.4-10.4); PLATELET 234 x1000/uL (130-400); RED BLOOD CELL COUNT 3.95 mill/uL (4.7-6.1); RED CELL DISTRIBUTION WIDTH 15.2 % (11.6-14.6)
[2020-10-20] MEDS: ASCORBIC ACID 500 MG TABLET PO SCH (08:48)
[2020-10-20] MEDS: CALCIUM ACETATE 667MG CAPSULE PO SCH ×3 (08:48→17:29)
[2020-10-20] MEDS: THIAMINE HCL 100MG TABLET PO SCH (08:48)
[2020-10-20] MEDS: ZINC SULFATE 220 MG ( 50 ) CAPSULE PO SCH (08:48)
[2020-10-20] MEDS: METHYLPREDNISOLONE SOD SUCC 40 MG/ML VIAL IV SCH ×2 (08:49→21:03)
[2020-10-20] MEDS: PANTOPRAZOLE SODIUM 40 MG/VIAL IV SCH (08:49)
[2020-10-20] MEDS: INSULIN GLARGINE UD 100 UNITS/ML SYR SUBCUT SCH ×2 (09:00→22:00)
[2020-10-20 10:08] LABS: BG BASE EXCESS -3.7 mmol/L (-2.0-2.0); BG CARBOXYHEMOGLOBIN 0.3 % (0.5-1.5); BG FRACTION INSPIRED OXYGEN 100; BG HCO3 ACT 23.5 mmol/L (22.0-26.0); BG METHEMOGLOBIN 0.2 % (0.0-1.5); BG OXYHEMOGLOBIN 97.5 % (94.0-97.0); BG PH 7.265 (7.350-7.450); BG PO2 126.5 mmHg (75.0-100.0); BG SAMPLE SITE RIGHT BRACHIAL; BG TOTAL HEMOGLOBIN 10.9 g/dL (12.0-18.0); BG TOTAL RESPIRATORY RATE 21 b/min; BG VENT MODE VENT - AC
[2020-10-20] MEDS ORDERED: VANCOMYCIN 500 MG PREMIX 100 ML IV SCH ×2 (11:00→15:00)
[2020-10-20] MEDS: FENTANYL CITRATE/PF 2,500 MCG in SODIUM CHLORIDE 0.9% 200 ML IV PRN (12:12)
[2020-10-20 12:32] LABS: PLATELET ESTIMATE NORMAL
[2020-10-20] MEDS: NOREPINEPHRINE 8 MG in DEXT 5% WATER 242 ML IV PRN ×2 (15:00→23:00)
[2020-10-20] MEDS: ENOXAPARIN 60MG/0.6ML SYR SUBCUT SCH (15:31)
[2020-10-21] VITALS (84 sets, daily range): BP systolic 100–170; BP diastolic 59–91
[2020-10-21] MEDS: IPRATROPIUM BROMIDE (0.02%) 0.5MG/2.5ML NEB HHN SCH ×6 (00:19→20:39)
[2020-10-21] MEDS: BLOOD SUGAR DIAGNOSTIC STRIP TEST SCH ×7 (01:24→23:47)
[2020-10-21] MEDS: INSULIN LISPRO 100 UNITS/ML SUBCUT SCH ×7 (01:24→23:45)
[2020-10-21] MEDS: METOCLOPRAMIDE HCL 10MG/2ML VIAL IV SCH ×5 (01:25→23:44)
[2020-10-21] MEDS: METRONIDAZOLE 250MG TABLET PO SCH ×3 (05:33→21:46)
[2020-10-21] MEDS: AZTREONAM 500 MG in DEXTROSE 5% WATER 50 ML IV SCH ×3 (05:34→21:46)
[2020-10-21 07:13] LABS: HEMATOCRIT. 29.8 % (42.0-52.0); HEMOGLOBIN. 9.6 g/dL (14.0-18.0); MEAN CORPUSCULAR VOLUME 83.8 fL (80.0-94.0); MEAN PLATELET VOLUME 9.2 fl (7.4-10.4); PLATELET 198 x1000/uL (130-400); RED BLOOD CELL COUNT 3.55 mill/uL (4.7-6.1); RED CELL DISTRIBUTION WIDTH 14.6 % (11.6-14.6)
[2020-10-21 07:54] LABS: PHOSPHORUS 5.7 mg/dL (2.5-4.9)
[2020-10-21 08:35] LABS: BG BASE EXCESS 0.6 mmol/L (-2.0-2.0); BG CARBOXYHEMOGLOBIN 0.3 % (0.5-1.5); BG DEOXYHEMOGLOBIN 1.8 % (0.0-5.0); BG FRACTION INSPIRED OXYGEN 90; BG METHEMOGLOBIN 0.1 % (0.0-1.5); BG OXYGEN SATURATION 98.2 % (92.0-98.5); BG OXYHEMOGLOBIN 97.8 % (94.0-97.0); BG PCO2 45.3 mmHg (35.0-45.0); BG PH 7.377 (7.350-7.450); BG PO2 120.2 mmHg (75.0-100.0); BG SAMPLE SITE RIGHT RADIAL; BG TOTAL HEMOGLOBIN 10.4 g/dL (12.0-18.0); BG VENT MODE VENT - AC/VC
[2020-10-21] MEDS: PANTOPRAZOLE SODIUM 40 MG/VIAL IV SCH (09:15)
[2020-10-21] MEDS: ZINC SULFATE 220 MG ( 50 ) CAPSULE PO SCH (09:17)
[2020-10-21] MEDS: ASCORBIC ACID 500 MG TABLET PO SCH (09:17)
[2020-10-21] MEDS: METHYLPREDNISOLONE SOD SUCC 40 MG/ML VIAL IV SCH ×2 (09:17→21:42)
[2020-10-21] MEDS: CALCIUM ACETATE 667MG CAPSULE PO SCH ×3 (09:17→16:35)
[2020-10-21] MEDS: THIAMINE HCL 100MG TABLET PO SCH (09:17)
[2020-10-21] MEDS: NOREPINEPHRINE 8 MG in DEXT 5% WATER 242 ML IV PRN (09:22)
[2020-10-21 10:56] LABS: PLATELET ESTIMATE NORMAL
[2020-10-21] MEDS: INSULIN GLARGINE UD 100 UNITS/ML SYR SUBCUT SCH ×2 (12:08→21:47)
[2020-10-21] MEDS: FENTANYL CITRATE/PF 2,500 MCG in SODIUM CHLORIDE 0.9% 200 ML IV PRN (15:35)
[2020-10-21] MEDS: ENOXAPARIN 60MG/0.6ML SYR SUBCUT SCH (16:35)
[2020-10-22] VITALS (61 sets, daily range): BP systolic 78–166; BP diastolic 49–89
[2020-10-22] MEDS: NOREPINEPHRINE 8 MG in DEXT 5% WATER 242 ML IV PRN ×3 (00:34→18:03)
[2020-10-22] MEDS: IPRATROPIUM BROMIDE (0.02%) 0.5MG/2.5ML NEB HHN SCH ×4 (02:49→21:13)
[2020-10-22] MEDS: BLOOD SUGAR DIAGNOSTIC STRIP TEST SCH ×5 (04:00→20:00)
[2020-10-22] MEDS: INSULIN LISPRO 100 UNITS/ML SUBCUT SCH ×5 (04:04→20:00)
[2020-10-22] MEDS: METRONIDAZOLE 250MG TABLET PO SCH ×3 (05:45→22:52)
[2020-10-22] MEDS: METOCLOPRAMIDE HCL 10MG/2ML VIAL IV SCH ×3 (05:45→18:02)
[2020-10-22 05:58] LABS: HEMATOCRIT. 29.9 % (42.0-52.0); HEMOGLOBIN. 9.8 g/dL (14.0-18.0); MEAN CORPUSCULAR HEMOGLOBIN 27.6 pg (28.0-32.0); MEAN CORPUSCULAR VOLUME 84.3 fL (80.0-94.0); MEAN PLATELET VOLUME 9.2 fl (7.4-10.4); PLATELET 201 x1000/uL (130-400); RED BLOOD CELL COUNT 3.54 mill/uL (4.7-6.1); RED CELL DISTRIBUTION WIDTH 15.2 % (11.6-14.6)
[2020-10-22] MEDS: METHYLPREDNISOLONE SOD SUCC 40 MG/ML VIAL IV SCH ×2 (09:02→22:52)
[2020-10-22] MEDS: ASCORBIC ACID 500 MG TABLET PO SCH (09:03)
[2020-10-22] MEDS: CALCIUM ACETATE 667MG CAPSULE PO SCH ×3 (09:03→18:02)
[2020-10-22] MEDS: THIAMINE HCL 100MG TABLET PO SCH (09:03)
[2020-10-22] MEDS: ZINC SULFATE 220 MG ( 50 ) CAPSULE PO SCH (09:03)
[2020-10-22] MEDS: FENTANYL CITRATE/PF 2,500 MCG in SODIUM CHLORIDE 0.9% 200 ML IV PRN ×2 (09:15→18:03)
[2020-10-22] MEDS: AZTREONAM 500 MG in DEXTROSE 5% WATER 50 ML IV SCH (09:36)
[2020-10-22] MEDS: INSULIN GLARGINE UD 100 UNITS/ML SYR SUBCUT SCH ×2 (09:37→22:54)
[2020-10-22 13:26] LABS: BG BASE EXCESS -0.5 mmol/L (-2.0-2.0); BG HCO3 ACT 24.9 mmol/L (22.0-26.0); BG PCO2 43.6 mmHg (35.0-45.0); BG PH 7.374 (7.350-7.450); BG PO2 126.6 mmHg (75.0-100.0)
[2020-10-22 13:47] LABS: BG FRACTION INSPIRED OXYGEN 90; BG OXYGEN SATURATION 99.1 % (92.0-98.5); BG SAMPLE SITE RIGHT RADIAL; BG VENT MODE VENT - AC/VC
[2020-10-22] MEDS ORDERED: VANCOMYCIN 500 MG PREMIX 100 ML IV SCH (14:00)
[2020-10-22] MEDS: ENOXAPARIN 60MG/0.6ML SYR SUBCUT SCH (14:11)
[2020-10-22] MEDS ORDERED: AMIKACIN 500MG in SODIUM CHLORIDE 0.9% 100ML IV NR (16:00)
[2020-10-22] MEDS: MEROPENEM 500 MG in SODIUM CHLORIDE 0.9% 50 ML IV SCH (16:18)
[2020-10-22 16:21] LABS: PLATELET ESTIMATE NORMAL
[2020-10-23] VITALS (95 sets, daily range): BP systolic 65–195; BP diastolic 35–106
[2020-10-23] MEDS: IPRATROPIUM BROMIDE (0.02%) 0.5MG/2.5ML NEB HHN SCH ×5 (00:36→20:26)
[2020-10-23] MEDS: INSULIN LISPRO 100 UNITS/ML SUBCUT SCH ×6 (01:33→20:00)
[2020-10-23] MEDS: BLOOD SUGAR DIAGNOSTIC STRIP TEST SCH ×6 (04:00→20:00)
[2020-10-23] MEDS: METRONIDAZOLE 250MG TABLET PO SCH ×3 (06:02→21:12)
[2020-10-23] MEDS: METOCLOPRAMIDE HCL 10MG/2ML VIAL IV SCH ×4 (06:03→18:34)
[2020-10-23 06:22] LABS: HEMATOCRIT. 25.9 % (42.0-52.0); HEMOGLOBIN. 8.6 g/dL (14.0-18.0); MEAN PLATELET VOLUME 9.9 fl (7.4-10.4); PLATELET 88 x1000/uL (130-400); RED BLOOD CELL COUNT 3.08 mill/uL (4.7-6.1); RED CELL DISTRIBUTION WIDTH 14.9 % (11.6-14.6)
[2020-10-23] MEDS: NOREPINEPHRINE 32 MG in DEXT 5% WATER 218 ML IV PRN (07:05)
[2020-10-23 08:54] LABS: BG BASE EXCESS -2.9 mmol/L (-2.0-2.0); BG CARBOXYHEMOGLOBIN 0.4 % (0.5-1.5); BG DEOXYHEMOGLOBIN 4.3 % (0.0-5.0); BG FRACTION INSPIRED OXYGEN 70; BG METHEMOGLOBIN 0.3 % (0.0-1.5); BG OXYGEN SATURATION 95.7 % (92.0-98.5); BG PCO2 52.1 mmHg (35.0-45.0); BG PH 7.282 (7.350-7.450); BG PO2 85.6 mmHg (75.0-100.0); BG SAMPLE SITE RIGHT RADIAL; BG TOTAL HEMOGLOBIN 10.5 g/dL (12.0-18.0); BG VENT MODE VENT - AC/VC
[2020-10-23] MEDS: METHYLPREDNISOLONE SOD SUCC 40 MG/ML VIAL IV SCH ×2 (09:30→21:12)
[2020-10-23] MEDS: THIAMINE HCL 100MG TABLET PO SCH (09:30)
[2020-10-23] MEDS: ZINC SULFATE 220 MG ( 50 ) CAPSULE PO SCH (09:30)
[2020-10-23] MEDS: CALCIUM ACETATE 667MG CAPSULE PO SCH ×3 (09:30→18:35)
[2020-10-23] MEDS: ASCORBIC ACID 500 MG TABLET PO SCH (09:30)
[2020-10-23] MEDS: ERGOCALCIFEROL 50000UNITS CAPSULE PO SCH (09:30)
[2020-10-23] MEDS: INSULIN GLARGINE UD 100 UNITS/ML SYR SUBCUT SCH ×2 (09:38→22:00)
[2020-10-23 12:38] LABS: PLATELET ESTIMATE DECREASED
[2020-10-23] MEDS: MEROPENEM 500 MG in SODIUM CHLORIDE 0.9% 50 ML IV SCH (13:08)
[2020-10-24] VITALS (94 sets, daily range): BP systolic 85–166; BP diastolic 53–89
[2020-10-24] MEDS: METOCLOPRAMIDE HCL 10MG/2ML VIAL IV SCH ×4 (00:53→17:16)
[2020-10-24] MEDS: FENTANYL CITRATE/PF 2,500 MCG in SODIUM CHLORIDE 0.9% 200 ML IV PRN ×2 (00:57→17:53)
[2020-10-24] MEDS: BLOOD SUGAR DIAGNOSTIC STRIP TEST SCH ×6 (04:59→20:00)
[2020-10-24] MEDS: INSULIN LISPRO 100 UNITS/ML SUBCUT SCH ×6 (05:04→20:00)
[2020-10-24] MEDS: METRONIDAZOLE 250MG TABLET PO SCH ×3 (05:36→21:15)
[2020-10-24 05:59] LABS: HEMATOCRIT. 26.2 % (42.0-52.0); HEMOGLOBIN. 8.8 g/dL (14.0-18.0); MEAN CORPUSCULAR HEMOGLOBIN 28.1 pg (28.0-32.0); MEAN CORPUSCULAR VOLUME 83.8 fL (80.0-94.0); PLATELET 95 x1000/uL (130-400); RED BLOOD CELL COUNT 3.13 mill/uL (4.7-6.1)
[2020-10-24] MEDS: IPRATROPIUM BROMIDE (0.02%) 0.5MG/2.5ML NEB HHN SCH ×4 (08:40→20:56)
[2020-10-24 08:41] LABS: BG BASE EXCESS -1.9 mmol/L (-2.0-2.0); BG CARBOXYHEMOGLOBIN 0.2 % (0.5-1.5); BG DEOXYHEMOGLOBIN 3.1 % (0.0-5.0); BG FRACTION INSPIRED OXYGEN 85; BG HCO3 ACT 23.8 mmol/L (22.0-26.0); BG METHEMOGLOBIN 0.2 % (0.0-1.5); BG OXYGEN SATURATION 96.9 % (92.0-98.5); BG OXYHEMOGLOBIN 96.5 % (94.0-97.0); BG PCO2 44.8 mmHg (35.0-45.0); BG PH 7.343 (7.350-7.450); BG PO2 90.9 mmHg (75.0-100.0); BG SAMPLE SITE RIGHT BRACHIAL; BG TOTAL HEMOGLOBIN 9.9 g/dL (12.0-18.0); BG VENT MODE VENT - AC/VC
[2020-10-24] MEDS: ASCORBIC ACID 500 MG TABLET PO SCH (09:29)
[2020-10-24] MEDS: THIAMINE HCL 100MG TABLET PO SCH (09:29)
[2020-10-24] MEDS: METHYLPREDNISOLONE SOD SUCC 40 MG/ML VIAL IV SCH ×2 (09:29→21:15)
[2020-10-24] MEDS: ZINC SULFATE 220 MG ( 50 ) CAPSULE PO SCH (09:29)
[2020-10-24] MEDS: CALCIUM ACETATE 667MG CAPSULE PO SCH ×3 (09:29→17:16)
[2020-10-24] MEDS: INSULIN GLARGINE UD 100 UNITS/ML SYR SUBCUT SCH ×2 (11:48→21:16)
[2020-10-24 13:14] LABS: PLATELET ESTIMATE DECREASED
[2020-10-24] MEDS: MEROPENEM 500 MG in SODIUM CHLORIDE 0.9% 50 ML IV SCH (14:13)
[2020-10-24] MEDS: LACTULOSE 20G/30ML UDC PO PRN (18:46)
[2020-10-25] VITALS (107 sets, daily range): BP systolic 58–172; BP diastolic 36–115
[2020-10-25] MEDS: BLOOD SUGAR DIAGNOSTIC STRIP TEST SCH ×6 (00:07→20:00)
[2020-10-25] MEDS: INSULIN LISPRO 100 UNITS/ML SUBCUT SCH ×6 (00:12→20:00)
[2020-10-25] MEDS: METOCLOPRAMIDE HCL 10MG/2ML VIAL IV SCH ×4 (00:13→17:25)
[2020-10-25] MEDS: IPRATROPIUM BROMIDE (0.02%) 0.5MG/2.5ML NEB HHN SCH ×5 (02:26→21:34)
[2020-10-25 06:22] LABS: HEMATOCRIT. 28.7 % (42.0-52.0); HEMOGLOBIN. 9.4 g/dL (14.0-18.0); MEAN CORPUSCULAR HEMOGLOBIN 27.7 pg (28.0-32.0); MEAN CORPUSCULAR VOLUME 84.4 fL (80.0-94.0); MEAN PLATELET VOLUME 9.2 fl (7.4-10.4); PLATELET 77 x1000/uL (130-400); RED CELL DISTRIBUTION WIDTH 15.5 % (11.6-14.6)
[2020-10-25 07:57] LABS: BG BASE EXCESS 1.8 mmol/L (-2.0-2.0); BG CARBOXYHEMOGLOBIN 0.3 % (0.5-1.5); BG DEOXYHEMOGLOBIN 4.3 % (0.0-5.0); BG FRACTION INSPIRED OXYGEN 85; BG HCO3 ACT 26.4 mmol/L (22.0-26.0); BG METHEMOGLOBIN 0.3 % (0.0-1.5); BG OXYGEN SATURATION 95.7 % (92.0-98.5); BG OXYHEMOGLOBIN 95.1 % (94.0-97.0); BG PCO2 41.3 mmHg (35.0-45.0); BG PH 7.423 (7.350-7.450); BG PO2 78.9 mmHg (75.0-100.0); BG SAMPLE SITE RIGHT RADIAL; BG TOTAL HEMOGLOBIN 9.1 g/dL (12.0-18.0); BG VENT MODE VENT - AC/VC
[2020-10-25] MEDS: ZINC SULFATE 220 MG ( 50 ) CAPSULE PO SCH (09:07)
[2020-10-25] MEDS: CALCIUM ACETATE 667MG CAPSULE PO SCH ×3 (09:07→17:25)
[2020-10-25] MEDS: ASCORBIC ACID 500 MG TABLET PO SCH (09:07)
[2020-10-25] MEDS: METHYLPREDNISOLONE SOD SUCC 40 MG/ML VIAL IV SCH ×2 (09:07→21:09)
[2020-10-25] MEDS: THIAMINE HCL 100MG TABLET PO SCH (09:07)
[2020-10-25] MEDS: INSULIN GLARGINE UD 100 UNITS/ML SYR SUBCUT SCH ×2 (10:55→21:11)
[2020-10-25] MEDS: LACTULOSE 20G/30ML UDC PO PRN (12:33)
[2020-10-25] MEDS: MIDODRINE HCL 5MG TABLET PO SCH ×2 (12:34→17:25)
[2020-10-25] MEDS: FENTANYL CITRATE/PF 2,500 MCG in SODIUM CHLORIDE 0.9% 200 ML IV PRN (12:41)
[2020-10-25] MEDS: MEROPENEM 500 MG in SODIUM CHLORIDE 0.9% 50 ML IV SCH (15:26)
[2020-10-25 19:13] LABS: PLATELET ESTIMATE DECREASED
[2020-10-26] VITALS (94 sets, daily range): BP systolic 70–188; BP diastolic 46–96
[2020-10-26] MEDS: BLOOD SUGAR DIAGNOSTIC STRIP TEST SCH ×6 (00:10→20:20)
[2020-10-26] MEDS: INSULIN LISPRO 100 UNITS/ML SUBCUT SCH ×6 (00:31→20:00)
[2020-10-26] MEDS: METOCLOPRAMIDE HCL 10MG/2ML VIAL IV SCH ×4 (00:32→17:02)
[2020-10-26] MEDS: IPRATROPIUM BROMIDE (0.02%) 0.5MG/2.5ML NEB HHN SCH ×4 (03:27→20:16)
[2020-10-26] MEDS: FENTANYL CITRATE/PF 2,500 MCG in SODIUM CHLORIDE 0.9% 200 ML IV PRN ×2 (03:38→16:53)
[2020-10-26] MEDS: METHYLPREDNISOLONE SOD SUCC 40 MG/ML VIAL IV SCH ×2 (08:53→20:50)
[2020-10-26] MEDS: CALCIUM ACETATE 667MG CAPSULE PO SCH ×3 (08:53→16:52)
[2020-10-26] MEDS: THIAMINE HCL 100MG TABLET PO SCH (08:54)
[2020-10-26] MEDS: MIDODRINE HCL 5MG TABLET PO SCH ×3 (08:54→16:53)
[2020-10-26] MEDS: ZINC SULFATE 220 MG ( 50 ) CAPSULE PO SCH (08:54)
[2020-10-26] MEDS: LACTULOSE 20G/30ML UDC PO PRN (08:54)
[2020-10-26] MEDS: ASCORBIC ACID 500 MG TABLET PO SCH (08:54)
[2020-10-26] MEDS: INSULIN GLARGINE UD 100 UNITS/ML SYR SUBCUT SCH ×2 (09:02→21:17)
[2020-10-26 09:47] LABS: BG BASE EXCESS 2.2 mmol/L (-2.0-2.0); BG CARBOXYHEMOGLOBIN 0.7 % (0.5-1.5); BG DEOXYHEMOGLOBIN 2.8 % (0.0-5.0); BG FRACTION INSPIRED OXYGEN 85; BG HCO3 ACT 28.8 mmol/L (22.0-26.0); BG METHEMOGLOBIN 0.3 % (0.0-1.5); BG OXYGEN SATURATION 97.2 % (92.0-98.5); BG OXYHEMOGLOBIN 96.2 % (94.0-97.0); BG PH 7.322 (7.350-7.450); BG PO2 100.5 mmHg (75.0-100.0); BG SAMPLE SITE RIGHT RADIAL; BG TOTAL HEMOGLOBIN 8.5 g/dL (12.0-18.0); BG VENT MODE VENT - AC
[2020-10-26 10:35] LABS: HEMATOCRIT. 25.1 % (42.0-52.0); HEMOGLOBIN. 8.3 g/dL (14.0-18.0); MEAN CORPUSCULAR HEMOGLOBIN 28.1 pg (28.0-32.0); MEAN CORPUSCULAR VOLUME 84.9 fL (80.0-94.0); MEAN PLATELET VOLUME 9.3 fl (7.4-10.4); PLATELET 65 x1000/uL (130-400); RED BLOOD CELL COUNT 2.95 mill/uL (4.7-6.1); RED CELL DISTRIBUTION WIDTH 15.2 % (11.6-14.6)
[2020-10-26] MEDS: MEROPENEM 500 MG in SODIUM CHLORIDE 0.9% 50 ML IV SCH (13:58)
[2020-10-26] MEDS: DEXTROSE 50% WATER 50ML SYRINGE IV PRN (15:32)
[2020-10-26] MEDS: NOREPINEPHRINE 32 MG in DEXT 5% WATER 218 ML IV PRN (16:54)
[2020-10-26 17:53] LABS: PLATELET ESTIMATE DECREASED
[2020-10-27] VITALS (96 sets, daily range): BP systolic 80–211; BP diastolic 46–106
[2020-10-27] MEDS: BLOOD SUGAR DIAGNOSTIC STRIP TEST SCH ×7 (00:18→23:57)
[2020-10-27] MEDS: METOCLOPRAMIDE HCL 10MG/2ML VIAL IV SCH ×5 (00:27→23:57)
[2020-10-27] MEDS: INSULIN GLARGINE UD 100 UNITS/ML SYR SUBCUT SCH ×3 (00:28→21:52)
[2020-10-27] MEDS: IPRATROPIUM BROMIDE (0.02%) 0.5MG/2.5ML NEB HHN SCH ×5 (02:49→20:53)
[2020-10-27] MEDS: FENTANYL CITRATE/PF 2,500 MCG in SODIUM CHLORIDE 0.9% 200 ML IV PRN ×2 (03:44→16:55)
[2020-10-27] MEDS: INSULIN LISPRO 100 UNITS/ML SUBCUT SCH ×7 (03:59→23:56)
[2020-10-27 05:48] LABS: HEMATOCRIT. 27.7 % (42.0-52.0); HEMOGLOBIN. 9.2 g/dL (14.0-18.0); MEAN CORPUSCULAR HEMOGLOBIN 28.2 pg (28.0-32.0); MEAN PLATELET VOLUME 9.5 fl (7.4-10.4); PLATELET 65 x1000/uL (130-400); RED BLOOD CELL COUNT 3.26 mill/uL (4.7-6.1); RED CELL DISTRIBUTION WIDTH 15.3 % (11.6-14.6)
[2020-10-27] MEDS ORDERED: POTASSIUM CHLORIDE 20MEQ/PACKET PO NR (07:15)
[2020-10-27] MEDS: THIAMINE HCL 100MG TABLET PO SCH (08:57)
[2020-10-27] MEDS: ZINC SULFATE 220 MG ( 50 ) CAPSULE PO SCH (08:57)
[2020-10-27] MEDS: CALCIUM ACETATE 667MG CAPSULE PO SCH ×3 (08:57→16:56)
[2020-10-27] MEDS: METHYLPREDNISOLONE SOD SUCC 40 MG/ML VIAL IV SCH ×2 (08:57→20:57)
[2020-10-27] MEDS: ASCORBIC ACID 500 MG TABLET PO SCH (08:58)
[2020-10-27] MEDS: MIDODRINE HCL 5MG TABLET NG SCH ×3 (09:00→16:36)
[2020-10-27] MEDS ORDERED: AMIKACIN SULFATE 250 MG in SODIUM CHLORIDE 0.9% 100 ML IV NR (10:30)
[2020-10-27 10:44] LABS: BG BASE EXCESS 2.6 mmol/L (-2.0-2.0); BG CARBOXYHEMOGLOBIN 0.1 % (0.5-1.5); BG DEOXYHEMOGLOBIN 17.7 % (0.0-5.0); BG HCO3 ACT 28.9 mmol/L (22.0-26.0); BG METHEMOGLOBIN 0.3 % (0.0-1.5); BG OXYGEN SATURATION 82.2 % (92.0-98.5); BG OXYHEMOGLOBIN 81.9 % (94.0-97.0); BG PCO2 53.1 mmHg (35.0-45.0); BG PH 7.353 (7.350-7.450); BG PO2 46.1 mmHg (75.0-100.0); BG SAMPLE SITE RIGHT RADIAL; BG TOTAL HEMOGLOBIN 9.7 g/dL (12.0-18.0); BG VENT MODE VENT - AC
[2020-10-27] MEDS ORDERED: KCL 20MEQ/100ML PREMIX 100 ML IV SCH (11:00)
[2020-10-27 12:08] LABS: BG VENT RATE 26 set
[2020-10-27 12:09] LABS: BG FRACTION INSPIRED OXYGEN 70
[2020-10-27 12:10] LABS: BG PEEP (cmH2O) 8 cmH2O
[2020-10-27 12:14] LABS: PLATELET ESTIMATE DECREASED
[2020-10-27] MEDS: MEROPENEM 500 MG in SODIUM CHLORIDE 0.9% 50 ML IV SCH (14:34)
[2020-10-27 21:59] LABS: PHOSPHORUS 4.4 mg/dL (2.5-4.9)
[2020-10-28] VITALS (108 sets, daily range): BP systolic 61–180; BP diastolic 33–111
[2020-10-28] MEDS: FENTANYL CITRATE/PF 2,500 MCG in SODIUM CHLORIDE 0.9% 200 ML IV PRN ×2 (01:50→09:20)
[2020-10-28] MEDS: IPRATROPIUM BROMIDE (0.02%) 0.5MG/2.5ML NEB HHN SCH ×5 (02:40→21:00)
[2020-10-28] MEDS: INSULIN LISPRO 100 UNITS/ML SUBCUT SCH ×5 (02:44→22:01)
[2020-10-28] MEDS: BLOOD SUGAR DIAGNOSTIC STRIP TEST SCH ×6 (02:44→23:59)
[2020-10-28] MEDS: METOCLOPRAMIDE HCL 10MG/2ML VIAL IV SCH ×4 (05:23→23:58)
[2020-10-28 06:14] LABS: HEMATOCRIT. 29.1 % (42.0-52.0); HEMOGLOBIN. 9.5 g/dL (14.0-18.0); MEAN CORPUSCULAR HEMOGLOBIN 27.6 pg (28.0-32.0); MEAN CORPUSCULAR VOLUME 84.3 fL (80.0-94.0); MEAN PLATELET VOLUME 9.5 fl (7.4-10.4); PLATELET 56 x1000/uL (130-400); RED BLOOD CELL COUNT 3.46 mill/uL (4.7-6.1); RED CELL DISTRIBUTION WIDTH 15.1 % (11.6-14.6)
[2020-10-28 07:16] LABS: PHOSPHORUS 4.5 mg/dL (2.5-4.9)
[2020-10-28 07:44] LABS: BG BASE EXCESS 0.8 mmol/L (-2.0-2.0); BG CARBOXYHEMOGLOBIN 0.3 % (0.5-1.5); BG DEOXYHEMOGLOBIN 1.1 % (0.0-5.0); BG FRACTION INSPIRED OXYGEN 85; BG HCO3 ACT 26.5 mmol/L (22.0-26.0); BG METHEMOGLOBIN 0.3 % (0.0-1.5); BG OXYGEN SATURATION 98.9 % (92.0-98.5); BG OXYHEMOGLOBIN 98.3 % (94.0-97.0); BG PCO2 47.6 mmHg (35.0-45.0); BG PH 7.364 (7.350-7.450); BG PO2 145.5 mmHg (75.0-100.0); BG SAMPLE SITE RIGHT RADIAL; BG TOTAL HEMOGLOBIN 10.3 g/dL (12.0-18.0); BG VENT MODE VENT - AC/VC
[2020-10-28 08:42] LABS: PLATELET ESTIMATE DECREASED
[2020-10-28] MEDS: MIDODRINE HCL 5MG TABLET NG SCH ×3 (09:00→17:00)
[2020-10-28] MEDS: METHYLPREDNISOLONE SOD SUCC 40 MG/ML VIAL IV SCH ×2 (09:17→21:00)
[2020-10-28] MEDS: ASCORBIC ACID 500 MG TABLET PO SCH (09:18)
[2020-10-28] MEDS: ZINC SULFATE 220 MG ( 50 ) CAPSULE PO SCH (09:18)
[2020-10-28] MEDS: THIAMINE HCL 100MG TABLET PO SCH (09:18)
[2020-10-28] MEDS: CALCIUM ACETATE 667MG CAPSULE PO SCH ×3 (09:18→17:34)
[2020-10-28] MEDS: INSULIN GLARGINE UD 100 UNITS/ML SYR SUBCUT SCH ×2 (10:00→22:02)
[2020-10-28] MEDS: DEXTROSE 50% WATER 50ML SYRINGE IV PRN (12:24)
[2020-10-28] MEDS ORDERED: KCL 20MEQ/100ML PREMIX 100 ML IV SCH (13:00)
[2020-10-28] MEDS: LACTULOSE 20G/30ML UDC PO PRN (15:51)
[2020-10-28] MEDS: PHENYLEPHRINE 100 MG in DEXT 5% WATER 240 ML IV PRN (18:34)
[2020-10-28] MEDS: VASOPRESSIN 20 UNIT in SODIUM CHLORIDE 0.9% 99 ML IV PRN (20:52)
[2020-10-28] MEDS ORDERED: METOPROLOL TARTRATE 5MG/5ML VIAL IV SCH (23:29)
[2020-10-28] MEDS ORDERED: METOPROLOL TARTRATE 5MG/5ML VIAL IV NR (23:30)
[2020-10-29] VITALS (104 sets, daily range): BP systolic 69–170; BP diastolic 33–88
[2020-10-29] MEDS: FENTANYL CITRATE/PF 2,500 MCG in SODIUM CHLORIDE 0.9% 200 ML IV PRN ×3 (00:06→18:58)
[2020-10-29] MEDS: INSULIN LISPRO 100 UNITS/ML SUBCUT SCH ×6 (00:56→20:27)
[2020-10-29] MEDS: IPRATROPIUM BROMIDE (0.02%) 0.5MG/2.5ML NEB HHN SCH ×5 (03:16→21:40)
[2020-10-29] MEDS: PHENYLEPHRINE 100 MG in DEXT 5% WATER 240 ML IV PRN ×3 (03:23→22:11)
[2020-10-29] MEDS: VASOPRESSIN 20 UNIT in SODIUM CHLORIDE 0.9% 99 ML IV PRN ×3 (03:45→21:34)
[2020-10-29] MEDS: METOPROLOL TARTRATE 5MG/5ML VIAL IV SCH ×2 (03:49→07:29)
[2020-10-29] MEDS: BLOOD SUGAR DIAGNOSTIC STRIP TEST SCH ×6 (04:24→23:36)
[2020-10-29] MEDS ORDERED: INSULIN LISPRO 100 UNITS/ML SUBCUT PRN (04:45)
[2020-10-29] MEDS: ACETAMINOPHEN 650MG/20.3ML UDC PO PRN ×2 (05:34→23:24)
[2020-10-29] MEDS: METOCLOPRAMIDE HCL 10MG/2ML VIAL IV SCH ×4 (05:41→23:36)
[2020-10-29] MEDS: NOREPINEPHRINE 32 MG in DEXT 5% WATER 218 ML IV PRN (06:34)
[2020-10-29] MEDS: CALCIUM ACETATE 667MG CAPSULE PO SCH ×3 (08:48→17:01)
[2020-10-29] MEDS: ASCORBIC ACID 500 MG TABLET PO SCH (08:48)
[2020-10-29] MEDS: ZINC SULFATE 220 MG ( 50 ) CAPSULE PO SCH (08:48)
[2020-10-29] MEDS: METHYLPREDNISOLONE SOD SUCC 40 MG/ML VIAL IV SCH ×2 (08:49→21:08)
[2020-10-29] MEDS: LACTULOSE 20G/30ML UDC PO PRN (08:49)
[2020-10-29] MEDS: THIAMINE HCL 100MG TABLET PO SCH (08:49)
[2020-10-29] MEDS: MIDODRINE HCL 5MG TABLET NG SCH ×3 (08:49→17:01)
[2020-10-29 09:28] LABS: BG BASE EXCESS -4.5 mmol/L (-2.0-2.0); BG CARBOXYHEMOGLOBIN 0.3 % (0.5-1.5); BG DEOXYHEMOGLOBIN 4.6 % (0.0-5.0); BG FRACTION INSPIRED OXYGEN 100; BG HCO3 ACT 20.9 mmol/L (22.0-26.0); BG METHEMOGLOBIN 0.1 % (0.0-1.5); BG OXYGEN SATURATION 95.4 % (92.0-98.5); BG PCO2 39.7 mmHg (35.0-45.0); BG PO2 76.8 mmHg (75.0-100.0); BG SAMPLE SITE RIGHT RADIAL; BG TOTAL RESPIRATORY RATE 30 b/min; BG VENT MODE VENT - AC
[2020-10-29] MEDS: INSULIN GLARGINE UD 100 UNITS/ML SYR SUBCUT SCH ×2 (10:00→23:49)
[2020-10-29] MEDS: DEXTROSE 50% WATER 50ML SYRINGE IV PRN ×3 (11:48→17:01)
[2020-10-29] MEDS: BISACODYL 10MG SUPP PR PRN (12:55)
[2020-10-29] MEDS: POLYETHYLENE GLYCOL 3350 (17GM) 1 DOSE PACK PO SCH (12:55)
[2020-10-29] MEDS: MEROPENEM 500 MG in SODIUM CHLORIDE 0.9% 50 ML IV SCH (20:10)
[2020-10-30] VITALS (96 sets, daily range): BP systolic 87–154; BP diastolic 41–80
[2020-10-30] MEDS: FENTANYL CITRATE/PF 2,500 MCG in SODIUM CHLORIDE 0.9% 200 ML IV PRN ×3 (03:50→21:02)
[2020-10-30] MEDS: IPRATROPIUM BROMIDE (0.02%) 0.5MG/2.5ML NEB HHN SCH ×5 (04:20→20:58)
[2020-10-30] MEDS: INSULIN LISPRO 100 UNITS/ML SUBCUT SCH ×7 (04:30→23:23)
[2020-10-30] MEDS: BLOOD SUGAR DIAGNOSTIC STRIP TEST SCH ×5 (04:36→23:23)
[2020-10-30] MEDS: METOCLOPRAMIDE HCL 10MG/2ML VIAL IV SCH ×4 (05:44→23:22)
[2020-10-30] MEDS: PHENYLEPHRINE 100 MG in DEXT 5% WATER 240 ML IV PRN ×2 (06:11→16:07)
[2020-10-30] MEDS: NOREPINEPHRINE 32 MG in DEXT 5% WATER 218 ML IV PRN (06:13)
[2020-10-30] MEDS: VASOPRESSIN 20 UNIT in SODIUM CHLORIDE 0.9% 99 ML IV PRN ×3 (06:16→16:03)
[2020-10-30] MEDS: LACTULOSE 20G/30ML UDC PO PRN (08:16)
[2020-10-30] MEDS: METHYLPREDNISOLONE SOD SUCC 40 MG/ML VIAL IV SCH ×2 (08:16→20:58)
[2020-10-30] MEDS: ACETAMINOPHEN 650MG/20.3ML UDC PO PRN (08:16)
[2020-10-30] MEDS: POLYETHYLENE GLYCOL 3350 (17GM) 1 DOSE PACK PO SCH (08:16)
[2020-10-30] MEDS: CALCIUM ACETATE 667MG CAPSULE PO SCH ×3 (08:16→17:38)
[2020-10-30] MEDS: ERGOCALCIFEROL 50000UNITS CAPSULE PO SCH (08:16)
[2020-10-30] MEDS: ZINC SULFATE 220 MG ( 50 ) CAPSULE PO SCH (08:17)
[2020-10-30] MEDS: MIDODRINE HCL 5MG TABLET NG SCH ×3 (08:17→17:33)
[2020-10-30] MEDS: THIAMINE HCL 100MG TABLET PO SCH (08:17)
[2020-10-30] MEDS: ASCORBIC ACID 500 MG TABLET PO SCH (08:17)
[2020-10-30 08:22] LABS: HEMATOCRIT. 33.1 % (42.0-52.0); HEMOGLOBIN. 10.4 g/dL (14.0-18.0); MEAN CORPUSCULAR HEMOGLOBIN 27.6 pg (28.0-32.0); MEAN CORPUSCULAR VOLUME 87.9 fL (80.0-94.0); MEAN PLATELET VOLUME 10.2 fl (7.4-10.4); RED BLOOD CELL COUNT 3.76 mill/uL (4.7-6.1); RED CELL DISTRIBUTION WIDTH 16.4 % (11.6-14.6)
[2020-10-30] MEDS: INSULIN GLARGINE UD 100 UNITS/ML SYR SUBCUT SCH ×2 (10:00→21:03)
[2020-10-30 10:04] LABS: BG BASE EXCESS -3.8 mmol/L (-2.0-2.0); BG CARBOXYHEMOGLOBIN 0.8 % (0.5-1.5); BG DEOXYHEMOGLOBIN 1.2 % (0.0-5.0); BG FRACTION INSPIRED OXYGEN 100; BG HCO3 ACT 23.8 mmol/L (22.0-26.0); BG METHEMOGLOBIN 0.1 % (0.0-1.5); BG OXYGEN SATURATION 98.8 % (92.0-98.5); BG OXYHEMOGLOBIN 97.9 % (94.0-97.0); BG PCO2 55.9 mmHg (35.0-45.0); BG PH 7.247 (7.350-7.450); BG PO2 154.5 mmHg (75.0-100.0); BG SAMPLE SITE RIGHT RADIAL; BG TOTAL RESPIRATORY RATE 30 b/min; BG VENT MODE VENT - AC
[2020-10-30] MEDS ORDERED: NA PHOS,M-B/NA PHOS,DI-BA ENEMA 118ML PR SCH (11:15)
[2020-10-30] MEDS ORDERED: ALBUMIN HUMAN 25GM/100ML (25%) IV SCH (12:00)
[2020-10-30 16:26] LABS: PLATELET ESTIMATE MARKEDLY DECREASED
[2020-10-30 16:27] LABS: PLATELET 24 x1000/uL (130-400)
[2020-10-30] MEDS: MEROPENEM 500 MG in SODIUM CHLORIDE 0.9% 50 ML IV SCH (20:58)
[2020-10-31] VITALS (92 sets, daily range): BP systolic 65–146; BP diastolic 31–71
[2020-10-31] MEDS: PHENYLEPHRINE 100 MG in DEXT 5% WATER 240 ML IV PRN ×3 (01:19→20:33)
[2020-10-31] MEDS: IPRATROPIUM BROMIDE (0.02%) 0.5MG/2.5ML NEB HHN SCH ×5 (03:16→20:04)
[2020-10-31] MEDS: BLOOD SUGAR DIAGNOSTIC STRIP TEST SCH ×5 (03:53→20:00)
[2020-10-31] MEDS: INSULIN LISPRO 100 UNITS/ML SUBCUT SCH ×5 (03:53→20:34)
[2020-10-31] MEDS: METOCLOPRAMIDE HCL 10MG/2ML VIAL IV SCH ×3 (05:24→17:45)
[2020-10-31] MEDS: FENTANYL CITRATE/PF 2,500 MCG in SODIUM CHLORIDE 0.9% 200 ML IV PRN ×3 (05:24→22:27)
[2020-10-31 05:45] LABS: CHLORIDE 95 mEq/L (98-107)
[2020-10-31 05:47] LABS: HEMATOCRIT. 25.3 % (42.0-52.0); HEMOGLOBIN. 8.1 g/dL (14.0-18.0); MEAN CORPUSCULAR HEMOGLOBIN 27.8 pg (28.0-32.0); MEAN CORPUSCULAR VOLUME 86.6 fL (80.0-94.0); MEAN PLATELET VOLUME 9.6 fl (7.4-10.4); RED BLOOD CELL COUNT 2.93 mill/uL (4.7-6.1); RED CELL DISTRIBUTION WIDTH 15.8 % (11.6-14.6)
[2020-10-31 06:14] LABS: PLATELET 23 x1000/uL (130-400)
[2020-10-31] MEDS: ACETAMINOPHEN 650MG/20.3ML UDC PO PRN ×2 (08:38→10:53)
[2020-10-31] MEDS: METHYLPREDNISOLONE SOD SUCC 40 MG/ML VIAL IV SCH ×2 (08:38→21:35)
[2020-10-31] MEDS: BISACODYL 10MG SUPP PR PRN (08:38)
[2020-10-31] MEDS: CALCIUM ACETATE 667MG CAPSULE PO SCH ×3 (08:38→17:45)
[2020-10-31] MEDS: ZINC SULFATE 220 MG ( 50 ) CAPSULE PO SCH (08:38)
[2020-10-31] MEDS: LACTULOSE 20G/30ML UDC PO PRN (08:38)
[2020-10-31] MEDS: ASCORBIC ACID 500 MG TABLET PO SCH (08:38)
[2020-10-31] MEDS: POLYETHYLENE GLYCOL 3350 (17GM) 1 DOSE PACK PO SCH (08:38)
[2020-10-31] MEDS: THIAMINE HCL 100MG TABLET PO SCH (08:39)
[2020-10-31] MEDS: MIDODRINE HCL 5MG TABLET NG SCH ×3 (08:39→17:45)
[2020-10-31 08:43] LABS: BG CARBOXYHEMOGLOBIN 1.2 % (0.5-1.5); BG DEOXYHEMOGLOBIN 10.3 % (0.0-5.0); BG HCO3 ACT 26.2 mmol/L (22.0-26.0); BG METHEMOGLOBIN 0.2 % (0.0-1.5); BG OXYGEN SATURATION 89.6 % (92.0-98.5); BG OXYHEMOGLOBIN 88.3 % (94.0-97.0); BG PCO2 56.3 mmHg (35.0-45.0); BG PH 7.285 (7.350-7.450); BG PO2 61.4 mmHg (75.0-100.0); BG SAMPLE SITE RIGHT BRACHIAL; BG VENT MODE VENT - AC
[2020-10-31] MEDS: INSULIN GLARGINE UD 100 UNITS/ML SYR SUBCUT SCH ×2 (10:00→22:27)
[2020-10-31 16:44] LABS: NUCLEATED RED BLOOD CELLS 2 /100 WBC; PLATELET ESTIMATE MARKEDLY DECREASED
[2020-10-31] MEDS: MEROPENEM 500 MG in SODIUM CHLORIDE 0.9% 50 ML IV SCH (20:33)
[2020-10-31] MEDS: NOREPINEPHRINE 32 MG in DEXT 5% WATER 218 ML IV PRN (22:29)
[2020-11-01] VITALS (41 sets, daily range): BP systolic 66–118; BP diastolic 37–60
[2020-11-01] MEDS: METOCLOPRAMIDE HCL 10MG/2ML VIAL IV SCH ×2 (00:09→05:41)
[2020-11-01] MEDS: INSULIN LISPRO 100 UNITS/ML SUBCUT SCH ×2 (00:09→04:00)
[2020-11-01] MEDS: IPRATROPIUM BROMIDE (0.02%) 0.5MG/2.5ML NEB HHN SCH ×2 (00:13→04:01)
[2020-11-01] MEDS: BLOOD SUGAR DIAGNOSTIC STRIP TEST SCH ×2 (04:00)
[2020-11-01] MEDS: PHENYLEPHRINE 100 MG in DEXT 5% WATER 240 ML IV PRN (05:42)
[2020-11-01] MEDS: FENTANYL CITRATE/PF 2,500 MCG in SODIUM CHLORIDE 0.9% 200 ML IV PRN (06:26)
[2020-11-01] MEDS ORDERED: MORPHINE SULFATE 250 MG in DEXT 5% WATER 240 ML IV PRN (09:00)
== END 2020-11-01 10:35 | disposition expired | DRG 720 ==
LOC: ER 09:43 → ENRESERV 16:36 → ER 17:21 → 7WST 18:22 → CVICU 10-09 09:52 → MICUSO 10-09 10:00 → CVICU 10-09 10:11 → MICUNO 10-28 12:08
PROVIDERS: ADMIT Internal Medicine; ATTEND Internal Medicine
PROC: 5A09357 Assistance with Respiratory Ventilation, Less than 24 Consecutive Hours, Continuous Positive Airway Pressure (ICD-10-PCS; 2020-10-08)
PROC: 5A1955Z Respiratory Ventilation, Greater than 96 Consecutive Hours (ICD-10-PCS; principal; 2020-10-09)
PROC: 5A12012 Performance of Cardiac Output, Single, Manual (ICD-10-PCS; 2020-10-09)
PROC: 0BH17EZ Insertion of Endotracheal Airway into Trachea, Via Natural or Artificial Opening (ICD-10-PCS; 2020-10-09)
PROC: 05HY33Z Insertion of Infusion Device into Upper Vein, Percutaneous Approach (ICD-10-PCS; 2020-10-09)
PROC: B54NZZA Ultrasonography of Left Upper Extremity Veins, Guidance (ICD-10-PCS; 2020-10-09)
DX: A41.89 Other specified sepsis (principal); U07.1 COVID-19; N18.6 End stage renal disease; J80 Acute respiratory distress syndrome; J12.82 Pneumonia due to coronavirus disease 2019; E87.5 Hyperkalemia; G93.1 Anoxic brain damage, not elsewhere classified; Z66 Do not resuscitate; Z51.5 Encounter for palliative care; E11.22 Type 2 diabetes mellitus with diabetic chronic kidney disease; E44.0 Moderate protein-calorie malnutrition; E87.1 Hypo-osmolality and hyponatremia; R74.01 Elevation of levels of liver transaminase levels; J15.9 Unspecified bacterial pneumonia; J81.1 Chronic pulmonary edema; D69.6 Thrombocytopenia, unspecified; K72.00 Acute and subacute hepatic failure without coma; D64.9 Anemia, unspecified; R65.21 Severe sepsis with septic shock; E11.65 Type 2 diabetes mellitus with hyperglycemia; E11.649 Type 2 diabetes mellitus with hypoglycemia without coma; E87.2 Acidosis; G92 Toxic encephalopathy; J84.10 Pulmonary fibrosis, unspecified; I13.2 Hypertensive heart and chronic kidney disease with heart failure and with stage 5 chronic kidney disease, or end stage renal disease; I50.43 Acute on chronic combined systolic (congestive) and diastolic (congestive) heart failure; Z88.0 Allergy status to penicillin; Z79.84 Long term (current) use of oral hypoglycemic drugs; Z99.2 Dependence on renal dialysis; Z79.899 Other long term (current) drug therapy; Z99.11 Dependence on respirator [ventilator] status
CPT/HCPCS: 36415; 36600; 70551; 71045; 76937; 80048; 80053; 80076; 80150; 80202; 82270; 82375; 82550; 82728; 82805; 82962; 83036; 83605; 83615; 83735; 83880; 83930; 84100; 84145; 84478; 84484; 85025; 85379; 85384; 86140; 86850; 86900; 86920; 87070; 87077; 93005; 93970; 94002; 94003; 94640; 94660; 96374; 99291; A6261; C1725; C1769; C9113; J0278; J0610; J1100; J1650; J1815; J1940; J1956; J2185; J2250; J2370; J2765; J2920; J2930; J3010; J3370; J3480; J3490; J7040; J7050; J7060; P9047; U0003